=== PATIENT | male | born 1955 | race Caucasian/White ===

== ENCOUNTER 2017-12-21 10:41 | Day surgery (SDC) | payer BC ==
[2017-12-19 08:32] VITALS: BMI 41.1
[2017-12-21 11:23] VITALS: TEMP 97.7
[2017-12-21] MEDS ORDERED: LIDOCAINE 1% 20 ML VIAL (10MG/ML) FOR IV START INTRADERMA ONE (11:50)
[2017-12-21] MEDS: LACTATED RINGERS 1,000 ML IV SCH ×2 (11:50→12:15)
[2017-12-21] MEDS ORDERED: PROPOFOL 10 MG/ML 20 ML VIAL IV ONE (12:17)
--- NOTE | 2017-12-21 12:40 | P.PCN ---
Date of Procedure: 12/21/17 Procedure(s) Performed: BRIEF HISTORY: Patient is a 62-year-old pleasant white male, scheduled for an elective colonoscopy as a part of evaluation of prior history of colon polyps. PROCEDURE PERFORMED: Colonoscopy with biopsy and snare polypectomy PREOPERATIVE DIAGNOSIS: History of Colon polyps. IV sedation per Anesthesia. PROCEDURE: After informed consent was obtained, the patient, was brought into the endoscopy unit. IV sedation was administered by Anesthesia under continuous monitoring. Digital rectal examination was normal. Initially the Olympus CF- 160 flexible video colonoscope was then inserted in the rectum, gradually advanced into the cecum without any difficulty. Careful examination was performed as the scope was gradually being withdrawn. Ileocecal valve and the appendiceal orifice were visualized and appeared normal. Prep was excellent. Mucosa of the cecum, appeared normal. In the ascending colon there were 3 polyps MEASURING between 3-4 mm in size removed by cold biopsy. In the descending colon there was a 7-8 mm polyp that was removed by snare polypectomy. In the sigmoid colon polyp was another 2-3 mm polyp 2 that was removed by biopsy. The rest of the ascending colon, transverse colon, descending colon, sigmoid colon, and rectum appeared normal. Moderate left- sided diverticulosis seen. Retroflexion was performed in the rectum and no lesions were seen. The patient tolerated the procedure well. IMPRESSION: 3 mm sessile 3 polyps in the ascending colon status post removal by cold biopsy 7-8 mm descending colon polyp status post polypectomy 2- 3 mm 2 sessile sigmoid colon polyps status post removal by biopsy Moderate left-sided diverticulosis. RECOMMENDATIONS: Findings of this examination were discussed with the patient well as his family. He was advised to follow with the biopsy results. He can have a repeat surveillance colonoscopy in 3 years because of multiple colon polyps..
[2017-12-21 13:04] VITALS: BP 138/89; PULSE 60; RESP 18
== END 2017-12-21 13:17 | disposition home or self-care (01) ==
LOC: ORWHC2ENDO 10:41
PROVIDERS: ATTEND Internal Medicine Gastroenterology
DX: D12.2 Benign neoplasm of ascending colon (principal); D12.5 Benign neoplasm of sigmoid colon; K63.5 Polyp of colon; K57.30 Diverticulosis of large intestine without perforation or abscess without bleeding; I10 Essential (primary) hypertension; E66.9 Obesity, unspecified; Z85.46 Personal history of malignant neoplasm of prostate; Z79.82 Long term (current) use of aspirin; Z86.010 Personal history of colon polyps; Z79.899 Other long term (current) drug therapy; Z68.41 Body mass index [BMI] 40.0-44.9, adult
CPT/HCPCS: 88305; 45385; 45380; J2704

== ENCOUNTER 2020-04-06 10:00 | Inpatient (IN) | payer BC ==
[2020-04-06] MEDS ORDERED: PIPERACILLIN-TAZOBACTAM 3.375 GM in SODIUM CHLORIDE 0.9% 100 ML IVPB STA (10:22)
[2020-04-06] MEDS ORDERED: VANCOMYCIN IV PER PHARMACY 1 EACH MISC MISCELLANE PRN (10:22)
[2020-04-06] MEDS ORDERED: IBUPROFEN 800 MG TAB PO STA (10:22)
[2020-04-06] MEDS ORDERED: VANCOMYCIN 2,250 MG in SODIUM CHLORIDE 0.9% 500 ML 500 ML IVPB ONE (10:45)
--- NOTE | 2020-04-06 11:14 | ED ---
Extremity Problem HPI - General Source: patient, RN notes reviewed Mode of arrival: wheelchair Limitations: physical limitation <Pranav Gamble - Last Filed: 04/06/20 11:44> <Winnie Rutledge - Last Filed: 04/07/20 09:39> - General Chief complaint: Extremity Problem,Nontraumatic Stated complaint: Cellulitis Time Seen by Provider: 04/06/20 10:10 - History of Present Illness Initial comments: This is a 64-year-old male presents emergency Department chief complaint of left leg cellulitis. Patient states she started having symptoms on Sunday states he developed a fever states he did not eat well. Patient had recurrent issues with cellulitis of his left leg he has seen infectious disease in the past for this. Patient states that he's been taking oral antibiotics since started and did have a visit with his PCP in which a placed him on additional medication yesterday. Patient states he woke up today with increased symptoms. Patient states that he has no history DVT denies any chest pain or shortness breath. Last dose of Tylenol was 4 hours prior arrival and states last dose of Motrin was last night. Patient denies any abdominal pain no headache no dizziness. (Pranav Gamble) - Related Data Home Medications Medication Instructions Recorded Confirmed L.acidoph,Paracasei, B.lactis 1 cap PO DAILY 12/19/17 04/06/20 [Probiotic] Ascorbic Acid [Vitamin C] 500 mg PO DAILY 04/06/20 04/06/20 Cholecalciferol [Vitamin D3 (25 1,000 unit PO DAILY 04/06/20 04/06/20 Mcg = 1000 Iu)] Methylsulfonylmethane [MSM] 900 mg PO DAILY 04/06/20 04/06/20 Sulfamethoxazole/Trimethoprim 1 tab PO BID 04/06/20 04/06/20 [Sulfamethoxazole-Tmp Ds Tablet] lisinopriL 20 mg PO DAILY 04/06/20 04/06/20 Allergies Allergy/AdvReac Type Severity Reaction Status Date / Time No Known Allergies Allergy Verified 04/06/20 10:42 Review of Systems ROS Other: All systems not noted in ROS Statement are negative. <Pranav Gamble - Last Filed: 04/06/20 11:44> ROS Other: All systems not noted in ROS Statement are negative. <Winnie Rutledge - Last Filed: 04/07/20 09:39> ROS Statement: Those systems with pertinent positive or pertinent negative responses have been documented in the HPI. Past Medical History Past Medical History: Cancer, Hyperlipidemia, Hypertension Additional Past Medical History / Comment(s): HX PROSTATE CANCER, cellulitis History of Any Multi-Drug Resistant Organisms: None Reported Past Surgical History: Prostate Surgery Additional Past Surgical History / Comment(s): PROSTATE REMOVED. COLONOSCOPY Past Anesthesia/Blood Transfusion Reactions: No Reported Reaction Past Psychological History: No Psychological Hx Reported Smoking Status: Never smoker Past Alcohol Use History: Daily Past Drug Use History: None Reported - Past Family History Mother Family Medical History: No Reported History <Pranav Gamble - Last Filed: 04/06/20 11:44> General Exam Limitations: physical limitation General appearance: alert, in no apparent distress Head exam: Present: atraumatic, normocephalic, normal inspection Eye exam: Present: normal appearance, PERRL, EOMI. Absent: scleral icterus, conjunctival injection, periorbital swelling Neck exam: Present: normal inspection, full ROM. Absent: tenderness, meningismus, lymphadenopathy Respiratory exam: Present: normal lung sounds bilaterally. Absent: respiratory distress, wheezes, rales, rhonchi, stridor Cardiovascular Exam: Present: normal rhythm, tachycardia, normal heart sounds. Absent: systolic murmur, diastolic murmur, rubs, gallop, clicks Extremities exam: Present: other (Significant erythema, swelling of the left leg, pulses are palpable plus, there is increased warmth the left leg there is tender with palpation over the area of erythema) Neurological exam: Present: alert, oriented X3 <Pranav Gamble - Last Filed: 04/06/20 11:44> Course Vital Signs 04/06/20 04/06/20 04/06/20 10:04 11:51 16:06 Temperature 102.9 F H 99.2 F Pulse Rate 118 H 105 H 103 H Respiratory 18 16 12 Rate Blood Pressure 162/88 159/92 151/93 O2 Sat by Pulse 97 96 98 Oximetry 04/06/20 19:03 Temperature 98.4 F Pulse Rate 104 H Respiratory 16 Rate Blood Pressure 158/99 O2 Sat by Pulse 94 L Oximetry Medical Decision Making - Lab Data Result diagrams: 04/06/20 10:57 04/06/20 10:57 <Pranav Gamble Last Filed: 04/06/20 11:44> - Lab Data Result diagrams: 04/06/20 10:57 04/06/20 10:57 <Winnie Rutledge - Last Filed: 04/07/20 09:39> - Medical Decision Making Patient has significant cellulitis of the left lower extremity, mild leukocytosis and febrile. Patient has been oral antibiotics and has failed outpatient treatment. Patient be admitted for IV antibiotics, infectious disease consult. (Pranav Gamble) I was available for consultation in the emergency department. The history and physical exam were done by the midlevel provider. I was consulted for this patients care. I reviewed the case with the midlevel provider and based on their presentation of the patient, I agree with the assessment, medical decision making and plan of care as documented. Chart was dictated using [employer] dictation software. Attempts were made to correct any dictation errors however some typographical errors may persist. Patient was seen during state of emergency due to Covid-19. (Winnie Rutledge) - Lab Data Lab Results 04/06/20 04/06/20 04/06/20 Range/Units 10:57 10:57 10:57 WBC 12.7 H (3.8-10.6) k/uL RBC 4.26 L (4.30-5.90) m/uL Hgb 14.6 (13.0-17.5) gm/dL Hct 43.6 (39.0-53.0) % MCV 102.5 H (80.0-100.0) fL MCH 34.4 (25.0-35.0) pg MCHC 33.6 (31.0-37.0) g/dL RDW 12.3 (11.5-15.5) % Plt Count 230 (150-450) k/uL MPV 7.8 Neutrophils % 85 % Lymphocytes % 5 % Monocytes % 6 % Eosinophils % 0 % Basophils % 1 % Neutrophils # 10.8 H (1.3-7.7) k/uL Lymphocytes # 0.6 L (1.0-4.8) k/uL Monocytes # 0.8 (0-1.0) k/uL Eosinophils # 0.1 (0-0.7) k/uL Basophils # 0.2 (0-0.2) k/uL PT 9.3 (9.0-12.0) sec INR 0.9 (<1.2) APTT 23.4 (22.0-30.0) sec Sodium 138 (137-145) mmol/L Potassium 3.9 (3.5-5.1) mmol/L Chloride 101 (98-107) mmol/L Carbon Dioxide 30 (22-30) mmol/L Anion Gap 7 mmol/L BUN 15 (9-20) mg/dL Creatinine 0.90 (0.66-1.25) mg/dL Est GFR (CKD-EPI)AfAm >90 (>60 ml/min/1.73 sqM) Est GFR (CKD-EPI)NonAf >90 (>60 ml/min/1.73 sqM) Glucose 118 H (74-99) mg/dL Plasma Lactic Acid Vlad (0.7-2.0) mmol/L Calcium 9.1 (8.4-10.2) mg/dL Total Bilirubin 0.6 (0.2-1.3) mg/dL AST 33 (17-59) U/L ALT 24 (4-49) U/L Alkaline Phosphatase 67 (38-126) U/L Total Protein 7.1 (6.3-8.2) g/dL Albumin 3.8 (3.5-5.0) g/dL 04/06/20 Range/Units 10:57 WBC (3.8-10.6) k/uL RBC (4.30-5.90) m/uL Hgb (13.0-17.5) gm/dL Hct (39.0-53.0) % MCV (80.0-100.0) fL MCH (25.0-35.0) pg MCHC (31.0-37.0) g/dL RDW (11.5-15.5) % Plt Count (150-450) k/uL MPV Neutrophils % % Lymphocytes % % Monocytes % % Eosinophils % % Basophils % % Neutrophils # (1.3-7.7) k/uL Lymphocytes # (1.0-4.8) k/uL Monocytes # (0-1.0) k/uL Eosinophils # (0-0.7) k/uL Basophils # (0-0.2) k/uL PT (9.0-12.0) sec INR (<1.2) APTT (22.0-30.0) sec Sodium (137-145) mmol/L Potassium (3.5-5.1) mmol/L Chloride (98-107) mmol/L Carbon Dioxide (22-30) mmol/L Anion Gap mmol/L BUN (9-20) mg/dL Creatinine (0.66-1.25) mg/dL Est GFR (CKD-EPI)AfAm (>60 ml/min/1.73 sqM) Est GFR (CKD-EPI)NonAf (>60 ml/min/1.73 sqM) Glucose (74-99) mg/dL Plasma Lactic Acid Vlad 1.1 (0.7-2.0) mmol/L Calcium (8.4-10.2) mg/dL Total Bilirubin (0.2-1.3) mg/dL AST (17-59) U/L ALT (4-49) U/L Alkaline Phosphatase (38-126) U/L Total Protein (6.3-8.2) g/dL Albumin (3.5-5.0) g/dL Disposition <Pranav Gamble - Last Filed: 04/06/20 11:44> <Winnie Rutledge - Last Filed: 04/07/20 09:39> Clinical Impression: Left leg cellulitis, Failure of outpatient treatment Disposition: ADMITTED IP TO THIS [facility] Condition: Fair
[2020-04-06 11:20] LABS: Basophils # (A) 0.2 k/uL (0-0.2); Basophils % (A) 1 %; Eosinophils # (A) 0.1 k/uL (0-0.7); Eosinophils % (A) 0 %; HCT 43.6 % (39.0-53.0); HGB 14.6 gm/dL (13.0-17.5); Lymphocytes # (A) 0.6 k/uL (1.0-4.8); Lymphocytes % (A) 5 %; MCH 34.4 pg (25.0-35.0); MCHC 33.6 g/dL (31.0-37.0); MCV 102.5 fL (80.0-100.0); Mean Platelet Volume 7.8; Monocytes # (A) 0.8 k/uL (0-1.0); Monocytes % (A) 6 %; Neutrophils # (A) 10.8 k/uL (1.3-7.7); Neutrophils % (A) 85 %; Platelet Count 230 k/uL (150-450); RBC 4.26 m/uL (4.30-5.90); RDW 12.3 % (11.5-15.5); WBC 12.7 k/uL (3.8-10.6)
[2020-04-06] MEDS ORDERED: ACETAMINOPHEN TAB 500 MG TAB PO STA (11:26)
[2020-04-06 11:31] LABS: ALT 24 U/L (4-49); AST 33 U/L (17-59); African American GFR (CKD) >90 (>60 ml/min/1.73 sqM); Albumin 3.8 g/dL (3.5-5.0); Alkaline Phosphatase 67 U/L (38-126); Anion Gap 7 mmol/L; Blood Urea Nitrogen 15 mg/dL (9-20); Calcium 9.1 mg/dL (8.4-10.2); Carbon Dioxide 30 mmol/L (22-30); Chloride 101 mmol/L (98-107); Glucose 118 mg/dL (74-99); INR 0.9 (<1.2); Non-African American GFR(CKD) >90 (>60 ml/min/1.73 sqM); Partial Thromboplastin Time 23.4 sec (22.0-30.0); Potassium 3.9 mmol/L (3.5-5.1); Prothrombin Time 9.3 sec (9.0-12.0); Sodium 138 mmol/L (137-145); Total Bilirubin 0.6 mg/dL (0.2-1.3); Total Protein 7.1 g/dL (6.3-8.2)
[2020-04-06] MEDS ORDERED: NALOXONE 0.4 MG/ML 1 ML VIAL IV PRN (11:45)
[2020-04-06] MEDS ORDERED: ONDANSETRON 4 MG/2 ML VIAL IVP PRN (11:45)
[2020-04-06] MEDS ORDERED: ACETAMINOPHEN TAB 325 MG TAB PO PRN (11:45)
[2020-04-06] MEDS: SODIUM CHLORIDE 0.9% 1,000 ML IV SCH ×2 (12:46→21:47)
[2020-04-06] MEDS: ceFAZolin 3 GM in SODIUM CHLORIDE 0.9% 100 ML IVPB SCH ×2 (18:58→23:32)
[2020-04-06] MEDS: IBUPROFEN 600 MG TAB PO PRN (19:01)
--- NOTE | 2020-04-07 00:54 | CONS ---
CONSULTATION DATE OF SERVICE: 04/06/2020 REASON FOR CONSULTATION: Left lower extremity cellulitis. HISTORY OF PRESENT ILLNESS: The patient is a 64-year-old male with a past medical history significant for lower extremity swelling and previous episode of left lower extremity cellulitis. The patient presenting to the ER at [facility] this morning for evaluation of left lower extremity swelling and redness that started on Sunday, that is about 4 days prior to presentation to the hospital. The patient denies having any history of trauma. He noticed diffuse swelling and redness of the left lower extremity. The patient did mention he has seen his primary care physician and the patient was started on some oral antibiotic. He is not sure about the name. The patient woke up this morning and noticed to have a fever along with rigors and more swelling and redness to the left leg. The patient denies significant pain to the left leg, though it is more of a diffuse swelling and redness. No open wound or any drainage. On arrival to the ER, the patient did have a fever of 102.9 degrees Fahrenheit. The patient was tachycardic and did have white count 12.7. The patient was started on vancomycin. He was admitted to the hospital. Infectious Disease was consulted for further management of antibiotic therapy. REVIEW OF SYSTEMS: Positive points have been mentioned in HPI. Rest of systems are negative. PAST MEDICAL HISTORY: Hypertension, hyperlipidemia, prostate cancer, left lower extremity cellulitis. PAST SURGICAL HISTORY: Prostatectomy and colonoscopy. SOCIAL HISTORY: No history of smoking. Rarely drinks. No drug use. FAMILY HISTORY: No pertinent findings noticed. ALLERGIES: No known drug allergies. MEDICATIONS: Medications include the patient is currently on Tylenol, Harmony, vancomycin, Motrin, Zestril, Narcan, Zofran and IV fluid. PHYSICAL EXAMINATION: Blood pressure 143/78 with a pulse of 92, temperature 98.4. He is 95% on room air. General description is a middle-aged male lying in bed in no distress. No tachypnea or accessory muscle of respiration use. HEENT: Examination shows no pallor or scleral icterus. Oral mucous membranes dry. No pharyngeal erythema or thrush. NECK: Trachea central, no thyromegaly. LUNGS: Unlabored breathing, clear to auscultation anteriorly. No wheeze or crackle. HEART: S1, S2. Regular rate and rhythm. No added sounds. ABDOMEN: Soft, no tenderness. No guarding or rigidity. EXAMINATION OF LEFT LOWER EXTREMITY: Diffuse swelling, redness, erythema and warm to touch. No open wound or any drainage. NEUROLOGICAL: The patient is awake, alert, oriented x3. Mood and affect normal. LABS: Hemoglobin is 14.6, white count 12.7, creatinine 0.90. DIAGNOSTIC IMPRESSION: Patient admitted to hospital with sepsis in this patient who did have a fever, tachycardia, elevated white count source is acute left lower extremity cellulitis in this patient who did have diffuse swelling, redness and previous episode of cellulitis likely streptococcal disease. PLAN: 1. Discontinue the vancomycin. 2. Will start cefazolin 3 grams q.8 hours. 3. Gordy wrap to the left leg from just above the toe to below the knee. 4. We will follow on clinical condition and culture to further adjust medication if needed. Thank you for this consultation. Will follow this patient along with you. MMODL / IJN: [id number] /
[2020-04-07] MEDS ORDERED: VANCOMYCIN 2,250 MG in SODIUM CHLORIDE 0.9% 500 ML 500 ML IVPB SCH (01:00)
[2020-04-07] MEDS: IBUPROFEN 600 MG TAB PO PRN ×3 (04:07→17:36)
[2020-04-07] MEDS: lisinopriL 20 MG TAB PO SCH (08:43)
[2020-04-07] MEDS: ceFAZolin 3 GM in SODIUM CHLORIDE 0.9% 100 ML IVPB SCH ×3 (08:43→23:25)
[2020-04-07 09:34] LABS: African American GFR (CKD) 110.2 (60.0-200.0); Non-African American GFR(CKD) 95.1 (60.0-200.0)
[2020-04-07] MEDS: ENOXAPARIN 40 MG/0.4 ML SYRINGE SQ SCH (11:14)
[2020-04-07] MEDS: LACTULOSE 20 GM/30 ML CUP PO SCH (16:06)
[2020-04-07] MEDS: CLINDAMYCIN 900 MG in DEXTROSE 5% IN WATER 50 ML IVPB SCH ×2 (17:36)
[2020-04-07] MEDS: MELATONIN 1 MG TAB PO SCH (20:57)
--- NOTE | 2020-04-07 22:43 | P.HPIM ---
History of Present Illness H&P Date: 04/07/20 Chief Complaint: Infection of left leg History of presenting complaint: This is a pleasant 64-year-old patient of Dr. Rafaela García. She started on Sunday with redness of the leg which are progressively getting worse. Started having fevers. Patient is given antibiotics by his PCP but he continued to get worse. Extending up to the thigh. Patient got his stay fever and chills. Having failed outpatient treatment being admitted for the same. Denies any urinary or respiratory symptoms. ID was consulted. Left leg is nontender dressing. With Gordy wrap Review of systems: GEN.: Fever and chills EYES: None HEENT: None NECK: None RESPIRATORY: None CARDIOVASCULAR: None GASTROINTESTINAL: None GENITOURINARY: BPH symptoms MUSCULOSKELETAL: None LYMPHATICS: As above HEMATOLOGICAL: None PSYCHIATRY: None NEUROLOGICAL: None Past medical history: Hyperlipidemia, hypertension, prostate cancer treated with surgery Social history: Patient smoked about half a pack a day for up to 35 years. Stopped in 2013. Has 2 drinks a walker every night. Works as a manufacturing maintenance technician. . Family history: Reviewed, noncontributory to presentation Physical examination: VITAL SIGNS: 102.9, 118, 18, 162/88, 97% room air-upon presentation GENERAL: BMI 45.2, sitting at the edge of the bed, awake. EYES: Pupils equal. Conjunctiva normal. HEENT: External appearance of nose and ears normal, oral cavity grossly normal. NECK: JVD not raised; masses not palpable. HEART: Distant heart sounds no edema. LUNGS: Respiratory rate normal; distant breath sounds. ABDOMEN: Soft, nontender, liver spleen not palpable, no masses palpable. PSYCH: Alert and oriented x3; mood and affect normal EXTREMITIES: Possible lymphedema of the lower extremity. Left lower extremity below the knee is covered dressing and Gordy wrap. Redness is noted is up to the groin area. Both the feet are dry. With some superficial cracks the skin. NEUROLOGICAL: Cranial nerves grossly intact; no facial asymmetry, power and sensation grossly intact. LYMPHATICS: No lymph nodes palpable in the axilla and neck INVESTIGATIONS, reviewed in the clinical context: White count 12.7 hemoglobin 14.6 platelets 2:30 potassium 3.9 creatinine 0.90 Assessment: -Acute cellulitis and lymphangitis possibly of the left lower extremity, cracks and dry feet causing source of entry of bacteria. Patient's failed outpatient treatment. -Sepsis from cellulitis is a left lower extremity -Possible bilateral lower extremity lymphedema -Morbid obesity BMI 45.2 -Essential hypertension -Hyperlipidemia Plan: Patient started on IV Ancef and clindamycin. By ID. Also got Gordy wraps lower extremity. Home medications to be resumed. Lovenox for DVT prophylaxis. Repeat labs in the morning. Past Medical History Past Medical History: Cancer, Hyperlipidemia, Hypertension Additional Past Medical History / Comment(s): HX PROSTATE CANCER, cellulitis History of Any Multi-Drug Resistant Organisms: None Reported Past Surgical History: Appendectomy, Prostate Surgery Additional Past Surgical History / Comment(s): PROSTATE REMOVED. COLONOSCOPY Past Anesthesia/Blood Transfusion Reactions: No Reported Reaction Past Psychological History: No Psychological Hx Reported Smoking Status: Never smoker Past Alcohol Use History: Daily Additional Past Alcohol Use History / Comment(s): QUIT SMOKING 2013. STATES DRINKS MORE THAN 14 DRINKS A WEEK Past Drug Use History: None Reported - Past Family History Mother Family Medical History: No Reported History Medications and Allergies Home Medications Medication Instructions Recorded Confirmed Type L.acidoph,Paracasei, B.lactis 1 cap PO DAILY 12/19/17 04/06/20 History [Probiotic] Ascorbic Acid [Vitamin C] 500 mg PO DAILY 04/06/20 04/06/20 History Cholecalciferol [Vitamin D3 (25 1,000 unit PO DAILY 04/06/20 04/06/20 History Mcg = 1000 Iu)] Methylsulfonylmethane [MSM] 900 mg PO DAILY 04/06/20 04/06/20 History Sulfamethoxazole/Trimethoprim 1 tab PO BID 04/06/20 04/06/20 History [Sulfamethoxazole-Tmp Ds Tablet] lisinopriL 20 mg PO DAILY 04/06/20 04/06/20 History Allergies Allergy/AdvReac Type Severity Reaction Status Date / Time No Known Allergies Allergy Verified 04/06/20 10:42 Physical Exam Vitals: Vital Signs Temp Pulse Pulse Resp BP BP Pulse Ox 04/07/20 04:10 99.1 F 95 16 152/86 96 04/07/20 00:05 16 04/06/20 21:07 98.4 F 92 16 143/78 95 04/06/20 21:00 95 16 04/06/20 19:03 98.4 F 104 H 16 158/99 94 L 04/06/20 16:06 103 H 12 151/93 98 04/06/20 11:51 99.2 F 105 H 16 159/92 96 Intake and Output 04/06/20 04/07/20 04/07/20 22:59 06:59 14:59 Intake Total 130 760 240 Balance 130 760 240 Intake: Intake, IV Titration 130 360 Amount Sodium Chloride 0.9% 1, 130 260 000 ml @ 130 mls/hr IV . [id number] VANESSA Rx#:[id number] ceFAZolin 3 gm In Sodium 100 Chloride 0.9% 100 ml @ 200 mls/hr IVPB Q8HR VANESSA Rx#:[id number] Oral 400 240 Other: Voiding Method Toilet Toilet # Voids 2 Weight 159.665 kg Results CBC & Chem 7: 04/06/20 10:57 04/07/20 05:49 Labs: Abnormal Lab Results - Last 24 Hours (Table) 04/06/20 04/06/20 Range/Units 10:57 10:57 WBC 12.7 H (3.8-10.6) k/uL RBC 4.26 L (4.30-5.90) m/uL MCV 102.5 H (80.0-100.0) fL Neutrophils # 10.8 H (1.3-7.7) k/uL Lymphocytes # 0.6 L (1.0-4.8) k/uL Glucose 118 H (74-99) mg/dL Thrombosis Risk Factor Assmnt - Choose All That Apply Any of the Below Risk Factors Present?: Yes Each Factor Represents 1 point: Obesity (BMI >25), Swollen legs (current) Other Risk Factors: Yes Each Risk Factor Represents 2 Points: Age 61-74 years Other congenital or acquired thrombophilia - If yes, enter type in comment: No Thrombosis Risk Factor Assessment Total Risk Factor Score: 4 Thrombosis Risk Factor Assessment Level: Moderate Risk
[2020-04-08] MEDS: CLINDAMYCIN 900 MG in DEXTROSE 5% IN WATER 50 ML IVPB SCH ×8 (00:03→23:39)
[2020-04-08] MEDS: IBUPROFEN 600 MG TAB PO PRN ×3 (00:06→16:24)
--- NOTE | 2020-04-08 00:15 | PN ---
PROGRESS NOTE DATE OF SERVICE: 04/07/2020 REASON FOR FOLLOWUP: Left lower extremity cellulitis. INTERVAL HISTORY: The patient is currently afebrile. The patient denies having any chest pain. No shortness of breath or cough. No nausea, no vomiting. No abdominal pain. Still has significant swelling and some redness to the left leg tracking up in the left medial thigh area. PHYSICAL EXAMINATION: Blood pressure 147/77 with a pulse of 90, temperature 98.4. He is 95% on room air. General description is a middle-aged male lying in bed in no distress. RESPIRATORY SYSTEM: Unlabored breathing, clear to auscultation anteriorly. HEART: S1, S2. Regular rate and rhythm. ABDOMEN: Soft, no tenderness. Left leg did have swelling and redness with some extension to the left medial thigh area. No open wound or any drainage. LABS: Blood culture negative. Creatinine 0.8. DIAGNOSTIC IMPRESSION AND PLAN: Patient with extensive left lower extremity cellulitis with diffuse swelling and redness, likely streptococcal disease. Still has significant inflammatory changes. Will add clindamycin, continue cefazolin and will evaluate the patient tomorrow. MMODL / IJN: [id number] /
[2020-04-08] MEDS: ceFAZolin 3 GM in SODIUM CHLORIDE 0.9% 100 ML IVPB SCH ×3 (09:18→23:39)
[2020-04-08] MEDS: LACTULOSE 20 GM/30 ML CUP PO SCH (09:19)
[2020-04-08] MEDS: ENOXAPARIN 40 MG/0.4 ML SYRINGE SQ SCH (09:19)
[2020-04-08] MEDS: lisinopriL 20 MG TAB PO SCH (09:19)
[2020-04-08 10:05] LABS: Basophils # (A) 0.1 k/uL (0-0.2); Basophils % (A) 1 %; Eosinophils # (A) 0.2 k/uL (0-0.7); Eosinophils % (A) 2 %; Lymphocytes # (A) 1.1 k/uL (1.0-4.8); Lymphocytes % (A) 11 %; MCH 34.2 pg (25.0-35.0); MCHC 32.5 g/dL (31.0-37.0); MCV 105.2 fL (80.0-100.0); Macrocytosis Slight; Mean Platelet Volume 7.5; Monocytes # (A) 0.5 k/uL (0-1.0); Monocytes % (A) 5 %; Neutrophils # (A) 7.4 k/uL (1.3-7.7); Neutrophils % (A) 79 %; Platelet Count 277 k/uL (150-450); RBC 3.81 m/uL (4.30-5.90); RDW 12.5 % (11.5-15.5); WBC 9.4 k/uL (3.8-10.6)
--- NOTE | 2020-04-08 14:06 | US ---
EXAMINATION TYPE: US venous doppler duplex LE LT DATE OF EXAM: 04/08/2020 12:32 PM COMPARISON: NONE CLINICAL HISTORY: poss DVT. Cellulitis SIDE PERFORMED: Left TECHNIQUE: The lower extremity deep venous system is examined utilizing real time linear array sonog dominic with graded compression, doppler sonography and color-flow sonography. VESSELS IMAGED: Common Femoral Vein Deep Femoral Vein Greater Saphenous Vein * Femoral Vein Popliteal Vein Small Saphenous Vein * Proximal Calf Veins (* superficial vessels) Left Leg: Negative for DVT There is normal flow, compressibility, vascular waveforms. IMPRESSION: No evident deep venous thrombosis at or above the left knee
[2020-04-08 15:10] LABS: African American GFR (CKD) 110.2 (60.0-200.0); Calcium 8.9 mg/dL (8.7-10.3); Non-African American GFR(CKD) 95.1 (60.0-200.0); Potassium 3.8 mmol/L (3.5-5.5)
[2020-04-08] MEDS: MELATONIN 1 MG TAB PO SCH (19:44)
--- NOTE | 2020-04-08 23:41 | P.PN ---
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 She started on Sunday with redness of the leg which are progressively getting worse. Started having fevers. Patient is given antibiotics by his PCP but he continued to get worse. Extending up to the thigh. Patient got his stay fever and chills. Having failed outpatient treatment being admitted for the same. Denies any urinary or respiratory symptoms. ID was consulted. Left leg is nontender dressing. With Gordy wrap Admitted with left lower extremity cellulitis and possible lymphangitis. Gordy wrap dressing. Started on IV Ancef and clindamycin. Today-crit this is a bit decreased. Feeling a bit better. Appetite better. Swelling of the left lower extremity. Review of systems: Was done for constitutional, cardiovascular, GI, pulmonary. relevant finding as above Active Medications Acetaminophen (Acetaminophen Tab 325 Mg Tab) 650 mg PO Q6HR PRN PRN Reason: Mild Pain or Fever > 100.5 Last Admin: 04/06/20 18:38 Dose: 650 mg Documented by: Hydrocodone Bitart/Acetaminophen (Hydrocodone/Apap 5-325mg 1 Each Tab) 1 each PO Q4HR PRN PRN Reason: Moderate Pain Enoxaparin Sodium (Enoxaparin 40 Mg/0.4 Ml Syringe) 40 mg SQ DAILY [facility] Last Admin: 04/08/20 09:19 Dose: 40 mg Documented by: Cefazolin Sodium 3 gm/ Sodium (Chloride) 100 mls @ 200 mls/hr IVPB Q8HR [facility] Last Admin: 04/08/20 16:12 Dose: 200 mls/hr Documented by: Clindamycin Phosphate 900 mg/ (Dextrose/Water) 56 mls @ 50 mls/hr IVPB Q8HR [facility] Last Admin: 04/08/20 16:12 Dose: 50 mls/hr Documented by: Ibuprofen (Ibuprofen 600 Mg Tab) 600 mg PO Q6HR PRN PRN Reason: Mild Pain or Fever > 100.5 Last Admin: 04/08/20 16:24 Dose: 600 mg Documented by: Lactulose (Lactulose 20 Gm/30 Ml Cup) 20 gm PO DAILY [facility] Last Admin: 04/08/20 09:19 Dose: 20 gm Documented by: Lisinopril (Lisinopril 20 Mg Tab) 20 mg PO DAILY [facility] Last Admin: 04/08/20 09:19 Dose: 20 mg Documented by: Melatonin (Melatonin 1 Mg Tab) 3 mg PO HS [facility] Last Admin: 04/08/20 19:44 Dose: 3 mg Documented by: Naloxone HCl (Naloxone 0.4 Mg/Ml 1 Ml Vial) 0.2 mg IV Q2M PRN PRN Reason: Opioid Reversal Ondansetron HCl (Ondansetron 4 Mg/2 Ml Vial) 4 mg IVP Q8HR PRN PRN Reason: Nausea And Vomiting Physical examination: VITAL SIGNS: Afebrile, 80, 16, 161/90, 94% room air GENERAL: BMI 45.2, sitting at the edge of the bed, awake. EYES: Pupils equal. Conjunctiva normal. NECK: JVD not raised; masses not palpable. HEART: Distant heart sounds no edema. LUNGS: Respiratory rate normal; distant breath sounds. ABDOMEN: Soft, nontender, liver spleen not palpable, no masses palpable. PSYCH: Alert and oriented x3; mood and affect normal EXTREMITIES: Possible lymphedema of the lower extremity. Left lower extremity showing redness, less than yesterday. Swollen. INVESTIGATIONS, reviewed in the clinical context: White count 9.4 hemoglobin 13 potassium 3.8 creatinine 0.8 Doppler ultrasound of the left leg-negative for DVT Previous testing White count 12.7 hemoglobin 14.6 platelets 2:30 potassium 3.9 creatinine 0.90 Assessment: -Acute cellulitis and lymphangitis possibly of the left lower extremity, cracks and dry feet causing source of entry of bacteria. Patient's failed outpatient treatment.-Start started respond -Sepsis from cellulitis is a left lower extremity-responding -Possible bilateral lower extremity lymphedema -Morbid obesity BMI 45.2 -Essential hypertension -Hyperlipidemia Plan: Continue IV Ancef and clindamycin. Other medications to continue. Ultrasound left lower extremity-negative for DVT
--- NOTE | 2020-04-08 23:47 | PN ---
PROGRESS NOTE DATE OF SERVICE: 04/08/2020 REASON FOR FOLLOWUP: Acute left lower extremity cellulitis. INTERVAL HISTORY: The patient is currently afebrile. The patient is breathing comfortably. The left leg swelling and redness has improved. Denies having any chest pain. No shortness of breath or cough. No abdominal pain or diarrhea. PHYSICAL EXAMINATION: Blood pressure 161/90 with a pulse of 80, temperature is 97.8. General description is a middle-aged male up in the bed in no distress. RESPIRATORY SYSTEM: Unlabored breathing, clear to auscultation anteriorly. HEART: S1, S2. Regular rate and rhythm. ABDOMEN: Soft, no tenderness. Left leg swelling and redness has decreased. No open or any drainage. DIAGNOSTIC IMPRESSION AND PLAN: Patient with acute left lower extremity cellulitis with diffuse swelling and redness, likely streptococcal disease and patient overall clinical improvement with cefazolin and clindamycin for another 24 to 48 hours before transitioning to oral antibiotics. Continue with supportive care. MMODL / IJN: [id number] /
[2020-04-09] MEDS: IBUPROFEN 600 MG TAB PO PRN (01:09)
[2020-04-09] MEDS: LACTULOSE 20 GM/30 ML CUP PO SCH (08:13)
[2020-04-09] MEDS: ENOXAPARIN 40 MG/0.4 ML SYRINGE SQ SCH (08:13)
[2020-04-09] MEDS: CLINDAMYCIN 900 MG in DEXTROSE 5% IN WATER 50 ML IVPB SCH ×4 (08:13→15:42)
[2020-04-09] MEDS: lisinopriL 20 MG TAB PO SCH (08:13)
[2020-04-09] MEDS: ceFAZolin 3 GM in SODIUM CHLORIDE 0.9% 100 ML IVPB SCH ×3 (08:14→23:27)
[2020-04-09 15:18] LABS: African American GFR (CKD) 110.2 (60.0-200.0); Non-African American GFR(CKD) 95.1 (60.0-200.0)
[2020-04-09] MEDS: HYDROcodone/APAP 5-325MG 1 EACH TAB PO PRN ×2 (15:49→23:28)
[2020-04-09] MEDS: MELATONIN 1 MG TAB PO SCH (20:22)
--- NOTE | 2020-04-09 23:13 | P.PN ---
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 She started on Sunday with redness of the leg which are progressively getting worse. Started having fevers. Patient is given antibiotics by his PCP but he continued to get worse. Extending up to the thigh. Patient got his stay fever and chills. Having failed outpatient treatment being admitted for the same. Denies any urinary or respiratory symptoms. ID was consulted. Left leg is nontender dressing. With Gordy wrap Admitted with left lower extremity cellulitis and possible lymphangitis. Gordy wrap dressing. Started on IV Ancef and clindamycin. Today-slight improvement and redness. Blister just above the left ankle. No fever Review of systems: Was done for constitutional, cardiovascular, GI, pulmonary. relevant finding as above Active Medications Acetaminophen (Acetaminophen Tab 325 Mg Tab) 650 mg PO Q6HR PRN PRN Reason: Mild Pain or Fever > 100.5 Last Admin: 04/06/20 18:38 Dose: 650 mg Documented by: Hydrocodone Bitart/Acetaminophen (Hydrocodone/Apap 5-325mg 1 Each Tab) 1 each PO Q4HR PRN PRN Reason: Moderate Pain Last Admin: 04/09/20 15:49 Dose: 1 each Documented by: Enoxaparin Sodium (Enoxaparin 40 Mg/0.4 Ml Syringe) 40 mg SQ DAILY [facility] Last Admin: 04/09/20 08:13 Dose: 40 mg Documented by: Cefazolin Sodium 3 gm/ Sodium (Chloride) 100 mls @ 200 mls/hr IVPB Q8HR [facility] Last Admin: 04/09/20 15:42 Dose: 200 mls/hr Documented by: Clindamycin Phosphate 900 mg/ (Dextrose/Water) 56 mls @ 50 mls/hr IVPB Q8HR [facility] Last Admin: 04/09/20 15:42 Dose: 50 mls/hr Documented by: Ibuprofen (Ibuprofen 600 Mg Tab) 600 mg PO Q6HR PRN PRN Reason: Mild Pain or Fever > 100.5 Last Admin: 04/09/20 01:09 Dose: 600 mg Documented by: Lactulose (Lactulose 20 Gm/30 Ml Cup) 20 gm PO DAILY [facility] Last Admin: 04/09/20 08:13 Dose: 20 gm Documented by: Lisinopril (Lisinopril 20 Mg Tab) 20 mg PO DAILY [facility] Last Admin: 04/09/20 08:13 Dose: 20 mg Documented by: Melatonin (Melatonin 1 Mg Tab) 3 mg PO HS [facility] Last Admin: 04/09/20 20:22 Dose: 3 mg Documented by: Naloxone HCl (Naloxone 0.4 Mg/Ml 1 Ml Vial) 0.2 mg IV Q2M PRN PRN Reason: Opioid Reversal Ondansetron HCl (Ondansetron 4 Mg/2 Ml Vial) 4 mg IVP Q8HR PRN PRN Reason: Nausea And Vomiting Silver Sulfadiazine (Silver Sulfadiazine 1% Cream 25 Gm Tube) 1 applic TOPICAL DAILY [facility] Last Admin: 04/09/20 17:59 Dose: 1 applic Documented by: Physical examination: VITAL SIGNS: 98.6, 103, 24, 152/92, 96% room air GENERAL: BMI 45.2, sitting sitting at edge of the bed, EYES: Pupils equal. Conjunctiva normal. NECK: JVD not raised; masses not palpable. HEART: Distant heart sounds no edema. LUNGS: Respiratory rate normal; distant breath sounds. ABDOMEN: Soft, nontender, liver spleen not palpable, no masses palpable. PSYCH: Alert and oriented x3; mood and affect normal EXTREMITIES: Possible lymphedema of the lower extremity. Left lower extremity showing redness,. Blister above the left ankle. Left leg swollen. INVESTIGATIONS, reviewed in the clinical context: White count 9.4 hemoglobin 13 potassium 3.8 creatinine 0.8 Doppler ultrasound of the left leg-negative for DVT Previous testing White count 12.7 hemoglobin 14.6 platelets 2:30 potassium 3.9 creatinine 0.90 COVID 19 P/Cr-not detected Assessment: -Acute cellulitis and lymphangitis possibly of the left lower extremity, cracks and dry feet causing source of entry of bacteria. Patient's failed outpatient treatment.- -Sepsis from cellulitis is a left lower extremity-responding -Possible bilateral lower extremity lymphedema. Left greater than right -Morbid obesity BMI 45.2 -Essential hypertension -Hyperlipidemia Plan: Continue IV Ancef and clindamycin. Gordy wrap to continue. Discussed with the patient. Keep left leg elevated.
[2020-04-10] MEDS: CLINDAMYCIN 900 MG in DEXTROSE 5% IN WATER 50 ML IVPB SCH ×6 (00:12→16:10)
[2020-04-10 06:30] LABS: Basophils # (A) 0.1 k/uL (0-0.2); Basophils % (A) 1 %; Eosinophils # (A) 0.2 k/uL (0-0.7); Eosinophils % (A) 2 %; HCT 39.9 % (39.0-53.0); HGB 13.2 gm/dL (13.0-17.5); Lymphocytes # (A) 1.6 k/uL (1.0-4.8); Lymphocytes % (A) 18 %; MCH 34.2 pg (25.0-35.0); MCV 103.7 fL (80.0-100.0); Macrocytosis Slight; Mean Platelet Volume 7.2; Monocytes # (A) 0.5 k/uL (0-1.0); Monocytes % (A) 6 %; Neutrophils # (A) 6.7 k/uL (1.3-7.7); Neutrophils % (A) 72 %; Platelet Count 448 k/uL (150-450); RBC 3.84 m/uL (4.30-5.90); RDW 12.4 % (11.5-15.5); WBC 9.3 k/uL (3.8-10.6)
--- NOTE | 2020-04-10 06:36 | PN ---
PROGRESS NOTE DATE OF SERVICE: 04/09/2020 REASON FOR FOLLOW UP: Extensive left lower extremity cellulitis. INTERVAL HISTORY: Patient is currently afebrile. The patient is breathing comfortably. The patient did have a blister formation to the left medial thigh area with rupture and complaining of more pain to that area. No chest pain. No cough. No abdominal pain, no diarrhea. PHYSICAL EXAMINATION: Blood pressure 150/96, pulse of 95, temperature 98.8. He is 95% on room air. General description is a middle-aged male up in the chair in no distress. Respiratory system: Unlabored breathing, clear to auscultation anteriorly. Heart S1, S2. Regular rate and rhythm. Abdomen is soft, no tenderness. Left leg with significant swelling, redness, no drainage. DIAGNOSTIC IMPRESSION AND PLAN: Patient with acute left lower extremity cellulitis. currently covered with cefazolin and clindamycin. Continue local care with Gordy wrap as well as Silvadene cream and monitor clinical course closely. MMODL / IJN: [id number] /
[2020-04-10] MEDS: ceFAZolin 3 GM in SODIUM CHLORIDE 0.9% 100 ML IVPB SCH ×2 (09:35→16:10)
[2020-04-10] MEDS: ENOXAPARIN 40 MG/0.4 ML SYRINGE SQ SCH (09:36)
[2020-04-10] MEDS: LACTULOSE 20 GM/30 ML CUP PO SCH (09:36)
[2020-04-10] MEDS: lisinopriL 20 MG TAB PO SCH (09:36)
[2020-04-10] MEDS: LORATADINE-PSEUDOEPH 5-120 MG 1 EACH TAB.ER.12H PO SCH ×2 (12:51→22:34)
[2020-04-10] MEDS: HYDROcodone/APAP 5-325MG 1 EACH TAB PO PRN (16:04)
--- NOTE | 2020-04-10 21:55 | P.PN ---
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 She started on Sunday with redness of the leg which are progressively getting worse. Started having fevers. Patient is given antibiotics by his PCP but he continued to get worse. Extending up to the thigh. Patient got his stay fever and chills. Having failed outpatient treatment being admitted for the same. Denies any urinary or respiratory symptoms. ID was consulted. Left leg is nontender dressing. With Gordy wrap Admitted with left lower extremity cellulitis and possible lymphangitis. Gordy wrap dressing. Started on IV Ancef and clindamycin. Today-slow improvement. Redness present. Decreased blisters. No fever no chills. Oral intake code. Review of systems: Was done for constitutional, cardiovascular, GI, pulmonary. relevant finding as above Active Medications Acetaminophen (Acetaminophen Tab 325 Mg Tab) 650 mg PO Q6HR PRN PRN Reason: Mild Pain or Fever > 100.5 Last Admin: 04/06/20 18:38 Dose: 650 mg Documented by: Hydrocodone Bitart/Acetaminophen (Hydrocodone/Apap 5-325mg 1 Each Tab) 1 each PO Q4HR PRN PRN Reason: Moderate Pain Last Admin: 04/10/20 16:04 Dose: 1 each Documented by: Enoxaparin Sodium (Enoxaparin 40 Mg/0.4 Ml Syringe) 40 mg SQ DAILY [facility] Last Admin: 04/10/20 09:36 Dose: 40 mg Documented by: Cefazolin Sodium 3 gm/ Sodium (Chloride) 100 mls @ 200 mls/hr IVPB Q8HR [facility] Last Admin: 04/10/20 16:10 Dose: 200 mls/hr Documented by: Clindamycin Phosphate 900 mg/ (Dextrose/Water) 56 mls @ 50 mls/hr IVPB Q8HR [facility] Last Admin: 04/10/20 16:10 Dose: 50 mls/hr Documented by: Ibuprofen (Ibuprofen 600 Mg Tab) 600 mg PO Q6HR PRN PRN Reason: Mild Pain or Fever > 100.5 Last Admin: 04/09/20 01:09 Dose: 600 mg Documented by: Lactulose (Lactulose 20 Gm/30 Ml Cup) 20 gm PO DAILY [facility] Last Admin: 04/10/20 09:36 Dose: 20 gm Documented by: Lisinopril (Lisinopril 20 Mg Tab) 20 mg PO DAILY [facility] Last Admin: 04/10/20 09:36 Dose: 20 mg Documented by: Loratadine/Pseudoephedrine Sulfate (Loratadine-Pseudoeph 5-120 Mg 1 Each Tab.Er.12h) 1 each PO Q12HR [facility] Last Admin: 04/10/20 12:51 Dose: 1 each Documented by: Melatonin (Melatonin 1 Mg Tab) 3 mg PO HS [facility] Last Admin: 04/09/20 20:22 Dose: 3 mg Documented by: Naloxone HCl (Naloxone 0.4 Mg/Ml 1 Ml Vial) 0.2 mg IV Q2M PRN PRN Reason: Opioid Reversal Ondansetron HCl (Ondansetron 4 Mg/2 Ml Vial) 4 mg IVP Q8HR PRN PRN Reason: Nausea And Vomiting Silver Sulfadiazine (Silver Sulfadiazine 1% Cream 25 Gm Tube) 1 applic TOPICAL DAILY [facility] Last Admin: 04/10/20 09:44 Dose: 1 applic Documented by: Physical examination: VITAL SIGNS: 97.9, 77, 16, 150s expected 9, 97% room air GENERAL: BMI 45.2, sitting up, comfortable EYES: Pupils equal. Conjunctiva normal. NECK: JVD not raised; masses not palpable. HEART: Distant heart sounds no edema. LUNGS: Respiratory rate normal; distant breath sounds. ABDOMEN: Soft, nontender, liver spleen not palpable, no masses palpable. PSYCH: Alert and oriented x3; mood and affect normal EXTREMITIES: lymphedema of the lower extremity. Left lower extremity showing redness,. Blister above the left ankle. Left leg swollen. INVESTIGATIONS, reviewed in the clinical context: White count 9.3 hemoglobin 13.2 Doppler ultrasound of the left leg-negative for DVT Previous testing White count 12.7 hemoglobin 14.6 platelets 2:30 potassium 3.9 creatinine 0.90 COVID 19 P/Cr-not detected Assessment: -Acute cellulitis and lymphangitis possibly of the left lower extremity, cracks and dry feet causing source of entry of bacteria. Patient's failed outpatient treatment.- -Sepsis from cellulitis is a left lower extremity-responding -Possible bilateral lower extremity lymphedema. Left greater than right -Morbid obesity BMI 45.2 -Essential hypertension -Hyperlipidemia Plan: Continue IV Ancef and clindamycin. Gordy wrap to continue. Follow with ID. Check pro-calcitonin.
--- NOTE | 2020-04-10 22:27 | PN ---
PROGRESS NOTE DATE OF SERVICE: 04/10/2020 REASON FOR FOLLOWUP VISIT: Extensive left lower extremity cellulitis. INTERVAL HISTORY: Patient is currently afebrile. Patient is breathing comfortably. Denies having any chest pain or shortness of breath or cough. Overall, pain to the left leg has slightly decreased. PHYSICAL EXAMINATION: Blood pressure 145/87, pulse of 69, temperature 98.2. He is 96% on room air. General description is a middle-aged male up in the chair in no distress. Respiratory system: Unlabored breathing, clear to auscultation anteriorly. Heart S1, S2. Regular rate and rhythm. Abdomen soft, no tenderness. Left leg swelling has mildly decreased. Did have some superficial ulceration from ( ). LABS: Hemoglobin 13.1, white count 9.3, creatinine 0.8. DIAGNOSTIC IMPRESSION AND PLAN: Patient with acute left lower extremity cellulitis and diffuse swelling and redness, extensive cellulitis, likely streptococcal. Responding to the clindamycin and Zosyn to continue for the 24 hours before transitioning to oral. Local care to the left leg wound with Aquacel Silver dressing to the open blister area and Gordy wrap and will re- evaluate the patient tomorrow. MMODL / IJN: [id number] /
[2020-04-10] MEDS: MELATONIN 1 MG TAB PO SCH (22:34)
[2020-04-11] MEDS: ceFAZolin 3 GM in SODIUM CHLORIDE 0.9% 100 ML IVPB SCH ×3 (00:11→16:36)
[2020-04-11] MEDS: CLINDAMYCIN 900 MG in DEXTROSE 5% IN WATER 50 ML IVPB SCH ×8 (00:17→23:35)
[2020-04-11] MEDS: HYDROcodone/APAP 5-325MG 1 EACH TAB PO PRN ×4 (00:19→20:06)
[2020-04-11] MEDS: LACTULOSE 20 GM/30 ML CUP PO SCH (07:53)
[2020-04-11] MEDS: LORATADINE-PSEUDOEPH 5-120 MG 1 EACH TAB.ER.12H PO SCH ×2 (07:53→20:09)
[2020-04-11] MEDS: lisinopriL 20 MG TAB PO SCH (07:53)
[2020-04-11] MEDS: ENOXAPARIN 40 MG/0.4 ML SYRINGE SQ SCH (07:53)
[2020-04-11] MEDS: MELATONIN 1 MG TAB PO SCH (20:09)
--- NOTE | 2020-04-11 21:32 | P.PN ---
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 She started on Sunday with redness of the leg which are progressively getting worse. Started having fevers. Patient is given antibiotics by his PCP but he continued to get worse. Extending up to the thigh. Patient got his stay fever and chills. Having failed outpatient treatment being admitted for the same. Denies any urinary or respiratory symptoms. ID was consulted. Left leg is nontender dressing. With Gordy wrap Admitted with left lower extremity cellulitis and possible lymphangitis. Gordy wrap dressing. Started on IV Ancef and clindamycin. Today-slow improvement. Redness present. Decreased blisters. No fever no chills. Eating better. Review of systems: Was done for constitutional, cardiovascular, GI, pulmonary. r elevant finding as above Active Medications Acetaminophen (Acetaminophen Tab 325 Mg Tab) 650 mg PO Q6HR PRN PRN Reason: Mild Pain or Fever > 100.5 Last Admin: 04/06/20 18:38 Dose: 650 mg Documented by: Hydrocodone Bitart/Acetaminophen (Hydrocodone/Apap 5-325mg 1 Each Tab) 1 each PO Q4HR PRN PRN Reason: Moderate Pain Last Admin: 04/11/20 20:06 Dose: 1 each Documented by: Enoxaparin Sodium (Enoxaparin 40 Mg/0.4 Ml Syringe) 40 mg SQ DAILY [facility] Last Admin: 04/11/20 07:53 Dose: 40 mg Documented by: Cefazolin Sodium 3 gm/ Sodium (Chloride) 100 mls @ 200 mls/hr IVPB Q8HR [facility] Last Admin: 04/11/20 16:36 Dose: 200 mls/hr Documented by: Clindamycin Phosphate 900 mg/ (Dextrose/Water) 56 mls @ 50 mls/hr IVPB Q8HR [facility] Last Admin: 04/11/20 16:36 Dose: 50 mls/hr Documented by: Ibuprofen (Ibuprofen 600 Mg Tab) 600 mg PO Q6HR PRN PRN Reason: Mild Pain or Fever > 100.5 Last Admin: 04/09/20 01:09 Dose: 600 mg Documented by: Lactulose (Lactulose 20 Gm/30 Ml Cup) 20 gm PO DAILY [facility] Last Admin: 04/11/20 07:53 Dose: 20 gm Documented by: Lisinopril (Lisinopril 20 Mg Tab) 20 mg PO DAILY [facility] Last Admin: 04/11/20 07:53 Dose: 20 mg Documented by: Loratadine/Pseudoephedrine Sulfate (Loratadine-Pseudoeph 5-120 Mg 1 Each Tab.Er.12h) 1 each PO Q12HR [facility] Last Admin: 04/11/20 20:09 Dose: 1 each Documented by: Melatonin (Melatonin 1 Mg Tab) 3 mg PO HS [facility] Last Admin: 04/11/20 20:09 Dose: 3 mg Documented by: Naloxone HCl (Naloxone 0.4 Mg/Ml 1 Ml Vial) 0.2 mg IV Q2M PRN PRN Reason: Opioid Reversal Ondansetron HCl (Ondansetron 4 Mg/2 Ml Vial) 4 mg IVP Q8HR PRN PRN Reason: Nausea And Vomiting Silver Sulfadiazine (Silver Sulfadiazine 1% Cream 25 Gm Tube) 1 applic TOPICAL DAILY [facility] Last Admin: 04/11/20 08:02 Dose: 1 applic Documented by: Physical examination: VITAL SIGNS: 98, 74, 17, 151 bun 97, 97% room air GENERAL: BMI 45.2, sitting up, comfortable EYES: Pupils equal. Conjunctiva normal. NECK: JVD not raised; masses not palpable. HEART: Distant heart sounds no edema. LUNGS: Respiratory rate normal; distant breath sounds. ABDOMEN: Soft, nontender, liver spleen not palpable, no masses palpable. PSYCH: Alert and oriented x3; mood and affect normal EXTREMITIES: lymphedema of the lower extremity. Left lower extremity showing redness,. . Left leg swollen. INVESTIGATIONS, reviewed in the clinical context: White count 9.3 hemoglobin 13.2. Pro-calcitonin 0.12 Previous testing White count 12.7 hemoglobin 14.6 platelets 2:30 potassium 3.9 creatinine 0.90 COVID 19 P/Cr-not detected Doppler ultrasound of the left leg-negative for DVT Assessment: -Acute cellulitis and lymphangitis possibly of the left lower extremity, cracks and dry feet causing source of entry of bacteria. Patient's failed outpatient treatment.- -Sepsis from cellulitis is a left lower extremity-responding -Possible bilateral lower extremity lymphedema. Left greater than right -Morbid obesity BMI 45.2 -Essential hypertension -Hyperlipidemia Plan: Continue IV Ancef and clindamycin. Spoke with nurse Due to the Gordy wrap for leak of the leg. And to both the legs. Discussed with Dr. Moscoso from ID. Hopefully discharge tomorrow.
[2020-04-12] MEDS: ceFAZolin 3 GM in SODIUM CHLORIDE 0.9% 100 ML IVPB SCH ×2 (00:44→08:36)
--- NOTE | 2020-04-12 03:35 | PN ---
PROGRESS NOTE DATE OF SERVICE: 04/11/2020 REASON FOR FOLLOWUP: Extensive left lower extremity cellulitis. INTERVAL HISTORY: The patient is currently afebrile. He has been breathing comfortably. The patient denies having any chest pain or shortness of breath or cough. No abdominal pain. Overall pain and discomfort to the left leg has slightly decreased. PHYSICAL EXAMINATION: His vital signs are stable with T-max of 98. General description is a middle-aged male up in the chair in no distress. RESPIRATORY SYSTEM: Unlabored breathing, clear to auscultation anteriorly. HEART: S1, S2. Regular rate and rhythm. ABDOMEN: Soft, no tenderness. Left leg swelling and redness slightly decreased. LABS: Culture remains to be negative. DIAGNOSTIC IMPRESSION AND PLAN: Patient with acute left lower extremity cellulitis in this patient did have diffuse swelling and redness, likely streptococcal disease. The patient has slow clinical response to the cefazolin and clindamycin. Plan to finish therapy with oral Keflex. Prescription has been sent. Local care to continue with dry Aquacel dressing and Gordy wrap and [facility]. Continue with supportive care. MMODL / IJN: [id number] /
[2020-04-12] MEDS: HYDROcodone/APAP 5-325MG 1 EACH TAB PO PRN (05:01)
[2020-04-12 07:48] VITALS: BP 160/98; PULSE 77; RESP 16; TEMP 97.7
[2020-04-12] MEDS: LACTULOSE 20 GM/30 ML CUP PO SCH (08:36)
[2020-04-12] MEDS: LORATADINE-PSEUDOEPH 5-120 MG 1 EACH TAB.ER.12H PO SCH (08:36)
[2020-04-12] MEDS: lisinopriL 20 MG TAB PO SCH (08:36)
[2020-04-12] MEDS: ENOXAPARIN 40 MG/0.4 ML SYRINGE SQ SCH (08:36)
[2020-04-12] MEDS: CLINDAMYCIN 900 MG in DEXTROSE 5% IN WATER 50 ML IVPB SCH ×2 (09:10)
[2020-04-12 10:19] VITALS: BMI 45.1
--- NOTE | 2020-04-12 14:30 | PN ---
PROGRESS NOTE DATE OF SERVICE: 04/12/2020 REASON FOR FOLLOWUP: Left lower extremity cellulitis. INTERVAL HISTORY: Patient was seen on rounds this afternoon. The patient has been afebrile. Overall pain is concern of negative. No chest pain or cough. No abdominal pain no diarrhea. PHYSICAL EXAMINATION: Blood pressure 160/90 with a pulse of 77, temperature 97.7. He is 96% on room air. General description is an middle-aged male, up in the in no distress. RESPIRATORY SYSTEM: Unlabored breathing, clear to auscultation. HEART: S1, S2. Regular rate and rhythm. ABDOMEN: Soft, no tenderness. Left leg swelling has slightly decreased. LABS: No new labs been obtained today. Blood culture has been negative. DIAGNOSTIC IMPRESSION AND PLAN: Patient acute left lower extremity cellulitis, extensive, clinically responded to cefazolin. Will switch to oral Keflex, prescription was sent to the pharmacy along with Gordy wrap to the leg and close outpatient followup. MMODL / IJN: [id number] /
--- NOTE | 2020-04-13 23:14 | P.DS ---
Providers Date of admission: 04/06/20 11:45 Expected date of discharge: 04/12/20 Attending physician: Zach Cordon Consults: 04/06/20 11:45 Consult Physician Urgent Consulting Provider: Natasha Jauregui Consult Reason/Comments: Cellulitis Do you want consulting provider notified?: Yes Primary care physician: Rafaela García [facility] Course: Chief Complaint: Infection of left leg History of presenting complaint: This is a pleasant 64-year-old patient of Dr. Rafaela García. She started on Sunday with redness of the leg which are progressively getting worse. Started having fevers. Patient is given antibiotics by his PCP but he continued to get worse. Extending up to the thigh. Patient got his stay fever and chills. Having failed outpatient treatment being admitted for the same. Denies any urinary or respiratory symptoms. ID was consulted. Left leg is nontender dressing. With Gordy wrap Admitted with left lower extremity cellulitis and possible lymphangitis. Gordy wrap dressing. Started on IV Ancef and clindamycin.responded well. Today-significant improvement. No fever no chills. Cleared by ID to go home. Patient advised to keep using Gordy wrap for long-term with the legs.he will follow at the wound Center with Dr. Moscoso. Consultation: from ID. Physical examination: VITAL SIGNS: 97.7, 77, 16, 1 6198, 96% room air GENERAL: BMI 45.2, sitting up, comfortable EYES: Pupils equal. Conjunctiva normal. NECK: JVD not raised; masses not palpable. HEART: Distant heart sounds no edema. LUNGS: Respiratory rate normal; distant breath sounds. ABDOMEN: Soft, nontender, liver spleen not palpable, no masses palpable. PSYCH: Alert and oriented x3; mood and affect normal EXTREMITIES: lymphedema of the lower extremity. Left lower extremity showing redness,. . Left leg swollen. INVESTIGATIONS, reviewed in the clinical context: White count 9.3 hemoglobin 13.2. Pro-calcitonin 0.12 Previous testing White count 12.7 hemoglobin 14.6 platelets 2:30 potassium 3.9 creatinine 0.90 COVID 19 P/Cr-not detected Doppler ultrasound of the left leg-negative for DVT Assessment: -Acute cellulitis and lymphangitis possibly of the left lower extremity, cracks and dry feet causing source of entry of bacteria. Patient's failed outpatient treatment.- -Sepsis from cellulitis is a left lower extremity-responding -Possible bilateral lower extremity lymphedema. Left greater than right -Morbid obesity BMI 45.2 -Essential hypertension -Hyperlipidemia disposition: Home Patient Condition at Discharge: Stable Plan - Discharge Summary New Discharge Prescriptions: New Cephalexin [Keflex] 500 mg PO Q6HR 10 Days #40 cap Melatonin 3 mg PO HS tab SILVER sulfADIAZINE CREAM [Silvadene Cream] 1 applic TOPICAL DAILY applic Acetaminophen Tab [Tylenol] 650 mg PO Q6HR PRN tab PRN Reason: Mild Pain Or Fever > 100.5 Continue L.acidoph,Paracasei, B.lactis [Probiotic] 1 cap PO DAILY Ascorbic Acid [Vitamin C] 500 mg PO DAILY Cholecalciferol [Vitamin D3 (25 Mcg = 1000 Iu)] 1,000 unit PO DAILY lisinopriL 20 mg PO DAILY Discontinued Methylsulfonylmethane [MSM] 900 mg PO DAILY Sulfamethoxazole/Trimethoprim [Sulfamethoxazole-Tmp Ds Tablet] 1 tab PO BID Discharge Medication List L.acidoph,Paracasei, B.lactis [Probiotic] 1 cap PO DAILY 12/19/17 [History] Ascorbic Acid [Vitamin C] 500 mg PO DAILY 04/06/20 [History] Cholecalciferol [Vitamin D3 (25 Mcg = 1000 Iu)] 1,000 unit PO DAILY 04/06/20 [History] lisinopriL 20 mg PO DAILY 04/06/20 [History] Cephalexin [Keflex] 500 mg PO Q6HR 10 Days #40 cap 04/11/20 [Rx] Acetaminophen Tab [Tylenol] 650 mg PO Q6HR PRN tab 04/12/20 [Rx] Melatonin 3 mg PO HS tab 04/12/20 [Rx] SILVER sulfADIAZINE CREAM [Silvadene Cream] 1 applic TOPICAL DAILY applic 04/12/20 [Rx] Follow up Appointment(s)/Referral(s): wound center-dr jauregui, [Other] - 1 Week (infectious disease physician will call the patient to make his appointment This appointment will be at [facility] ([facility] Rafaela García DO [Primary Care Provider] - 04/16/20 10:30 am Patient Instructions/Handouts: Cephalexin (By mouth), Cellulitis (DC) Activity/Diet/Wound Care/Special Instructions: Lab work --CBC/BMP in 5 days Wound care with gordy wrap to continue per Dr. Phillip Littlejohn to left inner calf blister area daily, wet to dry dressing, wrap with kerlix roll and gordy wrap daily. Silvadene cream to reddened areas on left leg/foot/thigh daily. Discharge/Stand Alone Forms: Work/School Release / Restrict Discharge Disposition: HOME SELF-CARE
== END 2020-04-12 13:20 | disposition home or self-care (01) | DRG 872 ==
LOC: EC 10:00 → 6NMEDSUR 11:45 → 5NMEDONC 04-11 18:06
PROVIDERS: ADMIT Hospitalist; ATTEND Hospitalist
DX: A41.9 Sepsis, unspecified organism (principal); Z68.42 Body mass index [BMI] 45.0-49.9, adult; L03.116 Cellulitis of left lower limb; E78.5 Hyperlipidemia, unspecified; E66.01 Morbid (severe) obesity due to excess calories; I10 Essential (primary) hypertension; Z79.899 Other long term (current) drug therapy; Z85.46 Personal history of malignant neoplasm of prostate; Z87.891 Personal history of nicotine dependence; Z98.890 Other specified postprocedural states
CPT/HCPCS: 36415; 80048; 80053; 82565; 83605; 84145; 85025; 85610; 85730; 87040; 96365; 96366; 96367; 99284

== ENCOUNTER 2023-05-26 13:19 | Emergency (ER) | payer BC, MEDICARE ==
--- NOTE | 2023-05-26 14:28 | ED ---
General Adult HPI - General Source: patient Mode of arrival: ambulatory Limitations: no limitations <Eric Cordova - Last Filed: 05/26/23 16:26> <Yaima Schwartz - Last Filed: 05/26/23 18:28> - General Chief complaint: Extremity Injury, Lower Stated complaint: Poss Blood Clot-L Leg/Calf - History of Present Illness Initial comments: Quick note: 67-year-old male presents to the emergency room for left calf pain. It just started last night. He saw his doctor today and was told to come to the ER to rule out a blood clot. He is not on any blood thinners. He does have a history of cellulitis in that leg but has not had those problems for 3 years. Verbally signed by Eric Cordova PAC 05/26/22 7000 (Eric Cordova) 67-year-old male presenting with chief complaint of left-sided calf pain. It is mainly to the lateral portion of the calf. It started last night. States that the pain is provoked by touching the area and weight bearing. He was seen at his PCPs office today, he was encouraged to come to the ER to rule out a blood clot. He does have a history of recurrent cellulitis to this leg, does not necessarily feel like previous episodes of cellulitis. No injury, fever, chills, nausea, vomiting, swelling, chest pain, difficulty breathing. (Yaima Schwartz) - Related Data Home Medications Medication Instructions Recorded Confirmed L.acidoph,Paracasei, B.lactis 1 cap PO DAILY 12/19/17 04/06/20 [Probiotic] Ascorbic Acid [Vitamin C] 500 mg PO DAILY 04/06/20 04/06/20 Cholecalciferol [Vitamin D3 (25 1,000 unit PO DAILY 04/06/20 04/06/20 Mcg = 1000 Iu)] lisinopriL 20 mg PO DAILY 04/06/20 04/06/20 Previous Rx's Medication Instructions Recorded Cephalexin [Keflex] 500 mg PO Q6HR 10 Days #40 cap 04/11/20 Acetaminophen Tab [Tylenol] 650 mg PO Q6HR PRN tab 04/12/20 Melatonin 3 mg PO HS tab 04/12/20 SILVER sulfADIAZINE CREAM 1 applic TOPICAL DAILY applic 04/12/20 [Silvadene Cream] Clindamycin [Cleocin] 450 mg PO TID 7 Days #63 cap 05/26/23 Allergies Allergy/AdvReac Type Severity Reaction Status Date / Time No Known Allergies Allergy Verified 05/26/23 14:26 Review of Systems ROS Other: All systems not noted in ROS Statement are negative. <Eric Cordova - Last Filed: 05/26/23 16:26> ROS Other: All systems not noted in ROS Statement are negative. <Yaima Schwartz - Last Filed: 05/26/23 18:28> ROS Statement: Those systems with pertinent positive or pertinent negative responses have been documented in the HPI. Past Medical History Past Medical History: Cancer, Hyperlipidemia, Hypertension Additional Past Medical History / Comment(s): HX PROSTATE CANCER, cellulitis History of Any Multi-Drug Resistant Organisms: None Reported Past Surgical History: Appendectomy, Prostate Surgery Additional Past Surgical History / Comment(s): PROSTATE REMOVED. COLONOSCOPY Past Anesthesia/Blood Transfusion Reactions: No Reported Reaction Past Psychological History: No Psychological Hx Reported Smoking Status: Never smoker Past Alcohol Use History: Daily Past Drug Use History: None Reported - Past Family History Mother Family Medical History: No Reported History <Eric Cordova - Last Filed: 05/26/23 16:26> General Exam Limitations: no limitations <Eric Cordova - Last Filed: 05/26/23 16:26> Limitations: no limitations General appearance: alert, in no apparent distress Head exam: Present: atraumatic, normocephalic Eye exam: Present: normal appearance Neck exam: Present: normal inspection Respiratory exam: Absent: respiratory distress Cardiovascular Exam: Present: regular rate Extremities exam: Present: full ROM Left Lower Leg exam: Present: tenderness (Tenderness to the lateral portion of the lower leg), swelling (There is a mild amount of swelling in the legs which patient states is his baseline), erythema (There is some erythema to the lower leg, patient and his states that this is how his leg normally appears) Neurovascular tendon exam: Present: no vascular compromise Neurological exam: Present: alert, oriented X3 Psychiatric exam: Present: normal affect, normal mood <Yaima Schwartz - Last Filed: 05/26/23 18:28> - General Exam Comments Initial Comments: Visual exam: Well-appearing, no acute distress (Eric Cordova) Course Vital Signs 05/26/23 14:23 Temperature 98.4 F Pulse Rate 83 Respiratory 20 Rate Blood Pressure 150/82 O2 Sat by Pulse 99 Oximetry Medical Decision Making <Yaima Schwartz - Last Filed: 05/26/23 18:28> - Medical Decision Making Was pt. sent in by a medical professional or institution (, AIDA, WATER AND SEWER SYSTEMS SUPERINTENDENT, urgent care, hospital, or alf...) When possible be specific @ -Sent by PCPs office Did you speak to anyone other than the patient for history (EMS, parent, family, police, friend...)? What history was obtained from this source @ -[No] Did you review nursing and triage notes (agree or disagree)? Why? @ -[I reviewed and agree with nursing and triage notes] Were old charts reviewed (outside hosp., previous admission, EMS record, old EKG, old radiological studies, urgent care reports/EKG's, alf records)? Report findings @ -[No old charts were reviewed] Differential Diagnosis (chest pain, altered mental status, abdominal pain women, abdominal pain men, vaginal bleeding, weakness, fever, dyspnea, syncope, headache, dizziness, GI bleed, back pain, seizure, CVA, palpatations, mental health, musculoskeletal)? @ -Differential Musculoskeletal Muscular strain, contusion, ligament sprain, fracture, arthritis, septic arthritis, bursitis, cellulitis, muscle spasm, nerve compression, DVT, arterial occlusion, herpes zoster, electrolyte abnormality, tumor.... This is not meant to be in all inclusive list EKG interpreted by me (3pts min.). @ -[As above] X-rays interpreted by me (1pt min.). @ -[None done] CT interpreted by me (1pt min.). @ -[None done] U/S interpreted by me (1pt. min.). @ -Ultrasound negative for DVT. What testing was considered but not performed or refused? (CT, X-rays, U/S, labs)? Why? @ -[None] What meds were considered but not given or refused? Why? @ -[None] Did you discuss the management of the patient with other professionals (professionals i.e. , [employer], WATER AND SEWER SYSTEMS SUPERINTENDENT, lab, RT, psych nurse, group social worker, director environmental, teacher, first aid officer, watch case polisher)? Give summary @ -[No] Was smoking cessation discussed for >3mins.? @ -[No] Was critical care preformed (if so, how long)? @ -[No] Were there social determinants of health that impacted care today? How? (Homelessness, low income, unemployed, alcoholism, drug addiction, transportation, low edu. Level, literacy, decrease access to med. care, alf, rehab)? @ -[No] Was there de-escalation of care discussed even if they declined (Discuss DNR or withdrawal of care, Hospice)? DNR status @ -[No] What co-morbidities impacted this encounter? (DM, HTN, Smoking, COPD, CAD, Cancer, CVA, ARF, Chemo, Hep., AIDS, mental health diagnosis, sleep apnea, morbid obesity)? @ -[None] Was patient admitted / discharged? Hospital course, mention meds given and route, prescriptions, significant lab abnormalities, going to OR and other pertinent info. @ -67-year-old male presenting with chief complaint of pain to the lateral portion of the left lower leg. It started last night. Told by PCP to rule out blood clot. Lower leg has some redness, patient report this is normal for him, tenderness on palpation of the lateral portion of the leg. Ultrasound is negative for DVT. Patient has history of recurrent cellulitis, he'll be treated with clindamycin. Follow-up with PCP. Report back to ER with any new or worsening symptoms. Discussed return parameters and answered all questions. Patient conveyed verbal understanding and agreed to the plan. I discussed this case in detail with my attending Dr. Gunn Undiagnosed new problem with uncertain prognosis? @ -[No] Drug Therapy requiring intensive monitoring for toxicity (Heparin, Nitro, Insulin, Cardizem)? @ -[No] Were any procedures done? @ -[No] Diagnosis/symptom? @ -Cellulitis Acute, or Chronic, or Acute on Chronic? @ -acute Uncomplicated (without systemic symptoms) or Complicated (systemic symptoms)? @ -Uncomplicated Side effects of treatment? @ -[No] Exacerbation, Progression, or Severe Exacerbation? @ -[No] Poses a threat to life or bodily function? How? (Chest pain, [place], CA, pneumonia, PE, COPD, DKA, ARF, appy, cholecystitis, CVA, Diverticulitis, Homicidal, Suicid al, threat to staff... and all critical care pts) @ -Low likelihood (Schwartz,Maloree) Disposition <Eric Cordova - Last Filed: 05/26/23 16:26> Is patient prescribed a controlled substance at d/c from ED?: No Time of Disposition: 16:29 <Yaima Schwartz - Last Filed: 05/26/23 18:28> Clinical Impression: Left leg cellulitis Disposition: HOME SELF-CARE Condition: Good Instructions (If sedation given, give patient instructions): Cellulitis (ED) Additional Instructions: Follow-up with PCP. Report back to ER with any new or worsening symptoms. Prescriptions: Clindamycin [Cleocin] 450 mg PO TID 7 Days #63 cap Referrals: John Benavides MD [Primary Care Provider] - 1-2 days
--- NOTE | 2023-05-26 15:50 | US ---
EXAMINATION TYPE: US venous doppler duplex LE LT DATE OF EXAM: 05/26/2023 3:30 PM COMPARISON: 04/08/2020 CLINICAL INDICATION: Male, 67 years old with history of DVT r/o; Left leg pain and redness, no known prior DVT SIDE PERFORMED: Left TECHNIQUE: The lower extremity deep venous system is examined utilizing real time linear array sonog dominic with graded compression, doppler sonography and color-flow sonography. VESSELS IMAGED: Common Femoral Vein Deep Femoral Vein Greater Saphenous Vein * Femoral Vein Popliteal Vein Small Saphenous Vein * Proximal Calf Veins Posterior tibial veins (* superficial vessels) Left Leg: Negative for DVT IMPRESSION: No evidence for DVT within the left lower extremity.
[2023-05-26] MEDS ORDERED: IBUPROFEN 400 MG TAB PO STA (16:30)
[2023-05-26 16:52] VITALS: BP 142/87; PULSE 80; RESP 18; TEMP 98.1
== END 2023-05-26 16:50 | disposition home or self-care (01) ==
LOC: EC 13:19
DX: L03.116 Cellulitis of left lower limb (principal); I10 Essential (primary) hypertension
CPT/HCPCS: 99283

== ENCOUNTER 2023-06-27 23:08 | Inpatient (IN) | payer MEDICARE, BC ==
[2023-06-27 23:55] LABS: Basophils # (A) 0.1 k/uL (0-0.2); Basophils % (A) 1 %; Eosinophils # (A) 0.3 k/uL (0-0.7); Eosinophils % (A) 3 %; HCT 39.6 % (39.0-53.0); HGB 13.1 gm/dL (13.0-17.5); Lymphocytes # (A) 3.2 k/uL (1.0-4.8); Lymphocytes % (A) 38 %; MCH 32.8 pg (25.0-35.0); MCHC 33.1 g/dL (31.0-37.0); MCV 99.1 fL (80.0-100.0); Mean Platelet Volume 7.6; Monocytes # (A) 0.6 k/uL (0-1.0); Monocytes % (A) 7 %; Neutrophils # (A) 4.1 k/uL (1.3-7.7); Neutrophils % (A) 48 %; Platelet Count 271 k/uL (150-450); RDW 12.9 % (11.5-15.5); WBC 8.6 k/uL (3.8-10.6)
[2023-06-28 00:05] LABS: ALT 25 U/L (4-49); AST 32 U/L (17-59); African American GFR (CKD) 88 (>60 ml/min/1.73 sqM); Albumin 4.3 g/dL (3.5-5.0); Alkaline Phosphatase 82 U/L (38-126); Anion Gap 8 mmol/L; Blood Urea Nitrogen 35 mg/dL (9-20); Calcium 9.7 mg/dL (8.4-10.2); Carbon Dioxide 26 mmol/L (22-30); Chloride 107 mmol/L (98-107); Glucose 99 mg/dL (74-99); Magnesium 1.9 mg/dL (1.6-2.3); Non-African American GFR(CKD) 77 (>60 ml/min/1.73 sqM); Partial Thromboplastin Time 25.9 sec (22.0-30.0); Potassium 4.3 mmol/L (3.5-5.1); Prothrombin Time 10.7 sec (10.0-12.5); Sodium 141 mmol/L (137-145); Total Bilirubin 0.3 mg/dL (0.2-1.3); Total Protein 7.7 g/dL (6.3-8.2)
--- NOTE | 2023-06-28 03:31 | CT ---
ADDENDUM - Added by Harpreet Alcantar MD on 06/28/2023 4:33 AM (-08:00) ADDENDUM: ADDITIONAL FINDINGS: Delayed phase imaging is now available. The hyperdensity noted on the early arterial phase imaging is not as clearly delineated but is suggested in the proximal sigmoid posteriorly, again suggesting subtle extravasation in this region. The previous impression remains. EXAM: CT Angiography Abdomen and Pelvis Without and With Intravenous Contrast CLINICAL HISTORY: GI bleed TECHNIQUE: Axial computed tomographic angiography images of the abdomen and pelvis without and with intravenous contrast. CTDI is 69.2 mGy and DLP is 4596. 6 mGy-cm. This CT exam was performed using one or more of the following dose reduction techniques: automated exposure control, adjustment of the mA and/or kV according to patient size, and/or use of iterative reconstruction technique. MIP reconstructed images were created and reviewed. COMPARISON: No relevant prior studies available. FINDINGS: VASCULATURE: Aorta: The aorta is normal in caliber without dissection or aneurysm. No significant atherosclerotic changes. Celiac trunk and mesenteric arteries: The LILY is patent proximally. No occlusion or significant stenosis. Renal arteries: No acute findings. No occlusion or significant stenosis. Iliac arteries: The common and external iliac arteries are widely patent without stenosis or occlusion. Lung bases: Unremarkable. No mass. No consolidation. ABDOMEN: Liver: Unremarkable. No mass. Gallbladder and bile ducts: Unremarkable. No calcified stones. No ductal dilation. Pancreas: Unremarkable. No ductal dilation. No mass. Spleen: Unremarkable. No splenomegaly. Adrenals: Unremarkable. No mass. Kidneys and ureters: The kidneys demonstrate normal enhancement. Nonobstructive nephrolithiasis is noted bilaterally with the largest stone burden inferiorly on the left measuring 16 mm in length. Incidental cortical cysts predominantly subcentimeter. Stomach and bowel: There is intraluminal contrast extravasation noted on early arterial phase imaging, not present on precontrast imaging, layering dependently in the proximal sigmoid colon (series 501; images [id number] and series 502; images 74-77). No bowel obstruction. No significant asymmetric bowel mucosal abnormality. Moderate stool burden. Extensive diverticulosis. PELVIS: Appendix: No findings to suggest acute appendicitis. Bladder: Unremarkable. No stones. No mass. Reproductive: Unremarkable as visualized. ABDOMEN and PELVIS: Intraperitoneal space: Unremarkable. No significant fluid collection. No free air. Bones/joints: No acute fracture. No dislocation. Soft tissues: Unremarkable. Lymph nodes: Unremarkable. No enlarged lymph nodes. IMPRESSION: There is intraluminal contrast extravasation noted on early arterial phase imaging, not present on precontrast imaging, layering dependently in the proximal sigmoid colon (series 501; images [id number] and series 502; images 74-77). This is consistent with the source of the patient's reported GI bleed. <MYCVCSECTION> Communications: 06/28/23 03:33 Call Doctor Regarding Active Bleeding in any site, called Dr. Rutledge on 06/28 03:33 (-05:00) 06/28/23 04:37 Verify Receipt Verified receipt with [facility]in in ER for Dr. Rutledge on 06/28 04:37 (-05:00)
[2023-06-28] MEDS ORDERED: NALOXONE 0.4 MG/ML 1 ML VIAL IV PRN (04:10)
--- NOTE | 2023-06-28 04:10 | ED ---
GI Bleed HPI - General Chief complaint: GI Bleed Stated complaint: GI BLEED Time Seen by Provider: 06/27/23 23:35 Source: patient Mode of arrival: ambulatory Limitations: no limitations - History of Present Illness Initial comments: 67-year-old male presents to the emergency department for rectal bleeding. States that he has had multiple bowel movements today of bright red blood. No history of similar in the past. States that he has had colonoscopies with polyps however has never had a GI bleed. He denies alcohol use. Does admit to daily NSAID use. Patient has mild left lower abdominal pain. No fevers. He does not take any blood thinners. No other alleviating, precipitating or modifying factors - Related Data Home Medications Medication Instructions Recorded Confirmed Ascorbic Acid [Vitamin C] 500 mg PO DAILY 04/06/20 06/28/23 Aspirin EC [Ecotrin] 325 mg PO DAILY 06/28/23 06/28/23 Cholecalciferol [Vitamin D3 (25 25 mcg PO DAILY 06/28/23 06/28/23 Mcg = 1000 Iu)] [place]-3/Dha/Epa/Fish Oil [Fish Oil 1 cap PO DAILY 06/28/23 06/28/23 1,000 mg Softgel] lisinopriL [Prinivil] 10 mg PO DAILY 06/28/23 06/28/23 Previous Rx's Medication Instructions Recorded Amoxic-Pot Clav 500-125 mg 1 tab PO Q12HR 7 Days #14 tab 06/30/23 [Augmentin 500-125 mg] Pantoprazole [Protonix] 40 mg PO DAILY #30 tab 06/30/23 Allergies Allergy/AdvReac Type Severity Reaction Status Date / Time No Known Allergies Allergy Verified 06/28/23 07:41 Review of Systems ROS Statement: Those systems with pertinent positive or pertinent negative responses have been documented in the HPI. ROS Other: All systems not noted in ROS Statement are negative. Past Medical History Past Medical History: Cancer, Hyperlipidemia, Hypertension Additional Past Medical History / Comment(s): HX PROSTATE CANCER, cellulitis History of Any Multi-Drug Resistant Organisms: None Reported Past Surgical History: Appendectomy, Prostate Surgery Additional Past Surgical History / Comment(s): PROSTATE REMOVED. COLONOSCOPY Past Anesthesia/Blood Transfusion Reactions: No Reported Reaction Past Psychological History: No Psychological Hx Reported Smoking Status: Never smoker Past Alcohol Use History: None Reported Past Drug Use History: None Reported - Past Family History Mother Family Medical History: No Reported History General Exam Limitations: no limitations General appearance: alert, in no apparent distress Head exam: Present: atraumatic, normocephalic, normal inspection Eye exam: Present: normal appearance, PERRL, EOMI. Absent: scleral icterus, conjunctival injection, periorbital swelling ENT exam: Present: normal exam, mucous membranes moist Neck exam: Present: normal inspection. Absent: tenderness, meningismus, lymphadenopathy Respiratory exam: Present: normal lung sounds bilaterally. Absent: respiratory distress, wheezes, rales, rhonchi, stridor Cardiovascular Exam: Present: regular rate, normal rhythm, normal heart sounds. Absent: systolic murmur, diastolic murmur, rubs, gallop, clicks GI/Abdominal exam: Present: soft, normal bowel sounds. Absent: distended, tenderness, guarding, rebound, rigid Rectal exam: Present: bloody stool. Absent: hemorrhoids, mass, tenderness Extremities exam: Present: normal inspection, full ROM, normal capillary refill. Absent: tenderness, pedal edema, joint swelling, calf tenderness Back exam: Present: normal inspection Neurological exam: Present: alert, oriented X3, CN II-XII intact Psychiatric exam: Present: normal affect, normal mood Skin exam: Present: warm, dry, intact, normal color. Absent: rash Course Vital Signs 06/27/23 06/28/23 06/28/23 23:15 00:22 01:09 Temperature 97.7 F Pulse Rate 84 74 77 Respiratory 16 16 18 Rate Blood Pressure 153/99 134/76 130/78 O2 Sat by Pulse 95 97 97 Oximetry 06/28/23 06/28/23 06/28/23 02:50 03:44 04:54 Temperature Pulse Rate 86 86 90 Respiratory 16 14 11 L Rate Blood Pressure 151/97 140/96 137/80 O2 Sat by Pulse 97 97 Oximetry 06/28/23 06/28/23 06/28/23 06:06 07:51 10:45 Temperature 97.7 F Pulse Rate 82 79 87 Respiratory 18 20 18 Rate Blood Pressure 130/71 132/88 154/86 O2 Sat by Pulse 97 97 98 Oximetry 06/28/23 06/28/23 06/28/23 12:24 13:26 14:40 Temperature 96.9 F L Pulse Rate 93 91 96 Respiratory 20 20 18 Rate Blood Pressure 139/90 129/85 129/76 O2 Sat by Pulse 98 96 97 Oximetry 06/28/23 06/28/23 17:36 18:04 Temperature Pulse Rate 107 H 106 H Respiratory 18 20 Rate Blood Pressure 158/95 134/97 O2 Sat by Pulse 98 Oximetry Medical Decision Making - Medical Decision Making Was pt. sent in by a medical professional or institution (, PA, HOTEL VALET ATTENDANT, urgent care, hospital, or [facility]...) When possible be specific @ -No Did you speak to anyone other than the patient for history (EMS, parent, family, police, friend...)? What history was obtained from this source @ -Spoke with the patient's Did you review nursing and triage notes (agree or disagree)? Why? @ -I reviewed and agree with nursing and triage notes Were old charts reviewed (outside hosp., previous admission, EMS record, old EKG, old radiological studies, urgent care reports/EKG's, [facility] records)? Report findings @ -No old charts were reviewed Differential Diagnosis (chest pain, altered mental status, abdominal pain women, abdominal pain men, vaginal bleeding, weakness, fever, dyspnea, syncope, headache, dizziness, GI bleed, back pain, seizure, CVA, palpatations, mental health, musculoskeletal)? @ -Differential GI Bleed: Esophageal varices, aortoenteric fistula, Kelsea-Beckwith, gastritis, peptic ulcer disease, diverticulosis, inflammatory bowel disease, hemorrhoids, fissure, colitis, malignancy, Meckels diverticulum, this is not meant to be an all- inclusive list. EKG interpreted by me (3pts min.). @ -Not done X-rays interpreted by me (1pt min.). @ -None done CT interpreted by me (1pt min.). @ -Yes and demonstrates extensive diverticulosis U/S interpreted by me (1pt. min.). @ -None done What testing was considered but not performed or refused? (CT, X-rays, U/S, labs)? Why? @ -None What meds were considered but not given or refused? Why? @ -None Did you discuss the management of the patient with other professionals (professionals i.e. , AIDA, HOTEL VALET ATTENDANT, lab, RT, psych nurse, director social, painting worker, teacher, family preservation officer, welfare case worker)? Give summary @ -Discussed the case with Dr. Brown who agreed to consult on the patient Was smoking cessation discussed for >3mins.? @ -No Was critical care preformed (if so, how long)? @ -No Were there social determinants of health that impacted care today? How? (Homelessness, low income, unemployed, alcoholism, drug addiction, transportation, low edu. Level, literacy, decrease access to med. care, [place] [facility], rehab)? @ -No Was there de-escalation of care discussed even if they declined (Discuss DNR or withdrawal of care, Hospice)? DNR status @ -No What co-morbidities impacted this encounter? (DM, HTN, Smoking, COPD, CAD, Cancer, CVA, ARF, Chemo, Hep., AIDS, mental health diagnosis, sleep apnea, morbid obesity)? @ -None Was patient admitted / discharged? Hospital course, mention meds given and route, prescriptions, significant lab abnormalities, going to OR and other pertinent info. @ -Upon arrival patient was placed into room 2. Thorough history and physical exam was performed. Rectal exam was performed and does demonstrate bright red blood. IV is established laboratory studies are conducted. CT is performed. I did call and speak with Dr. Brown. She was agreeable to consult on the patient for his GI bleed. Patient admitted to [facility]. Spoke with Isauro. Undiagnosed new problem with uncertain prognosis? @ -No Drug Therapy requiring intensive monitoring for toxicity (Heparin, Nitro, Insulin, Cardizem)? @ -No Were any procedures done? @ -No Diagnosis/symptom? @ -Acute hematochezia, acute diverticulosis Acute, or Chronic, or Acute on Chronic? @ -Acute Uncomplicated (without systemic symptoms) or Complicated (systemic symptoms)? @ -Complicated Side effects of treatment? @ -No Exacerbation, Progression, or Severe Exacerbation? @ -No Poses a threat to life or bodily function? How? (Chest pain, [place], [place], pneumonia, PE, COPD, DKA, ARF, appy, cholecystitis, CVA, Diverticulitis, Homicidal, Suicidal, threat to staff... and all critical care pts) @ -Yes patient does have significant lower GI bleed - Lab Data Result diagrams: 06/30/23 07:43 06/29/23 06:33 Lab Results 06/27/23 06/27/23 06/27/23 Range/Units 23:40 23:40 23:40 WBC 8.6 (3.8-10.6) k/uL RBC 4.00 L (4.30-5.90) m/uL Hgb 13.1 (13.0-17.5) gm/dL Hct 39.6 (39.0-53.0) % MCV 99.1 (80.0-100.0) fL MCH 32.8 (25.0-35.0) pg MCHC 33.1 (31.0-37.0) g/dL RDW 12.9 (11.5-15.5) % Plt Count 271 (150-450) k/uL MPV 7.6 Neutrophils % 48 % Lymphocytes % 38 % Monocytes % 7 % Eosinophils % 3 % Basophils % 1 % Neutrophils # 4.1 (1.3-7.7) k/uL Lymphocytes # 3.2 (1.0-4.8) k/uL Monocytes # 0.6 (0-1.0) k/uL Eosinophils # 0.3 (0-0.7) k/uL Basophils # 0.1 (0-0.2) k/uL PT 10.7 (10.0-12.5) sec INR 1.0 (<1.2) APTT 25.9 (22.0-30.0) sec Sodium 141 (137-145) mmol/L Potassium 4.3 (3.5-5.1) mmol/L Chloride 107 (98-107) mmol/L Carbon Dioxide 26 (22-30) mmol/L Anion Gap 8 mmol/L BUN 35 H (9-20) mg/dL Creatinine 1.02 (0.66-1.25) mg/dL Est GFR (CKD-EPI)AfAm 88 (>60 ml/min/1.73 sqM) Est GFR (CKD-EPI)NonAf 77 (>60 ml/min/1.73 sqM) Glucose 99 (74-99) mg/dL Plasma Lactic Acid Vlad (0.7-2.0) mmol/L Calcium 9.7 (8.4-10.2) mg/dL Magnesium 1.9 (1.6-2.3) mg/dL Total Bilirubin 0.3 (0.2-1.3) mg/dL AST 32 (17-59) U/L ALT 25 (4-49) U/L Alkaline Phosphatase 82 (38-126) U/L Troponin I (0.000-0.034) ng/mL Total Protein 7.7 (6.3-8.2) g/dL Albumin 4.3 (3.5-5.0) g/dL 06/27/23 06/27/23 Range/Units 23:40 23:40 WBC (3.8-10.6) k/uL RBC (4.30-5.90) m/uL Hgb (13.0-17.5) gm/dL Hct (39.0-53.0) % MCV (80.0-100.0) fL MCH (25.0-35.0) pg MCHC (31.0-37.0) g/dL RDW (11.5-15.5) % Plt Count (150-450) k/uL MPV Neutrophils % % Lymphocytes % % Monocytes % % Eosinophils % % Basophils % % Neutrophils # (1.3-7.7) k/uL Lymphocytes # (1.0-4.8) k/uL Monocytes # (0-1.0) k/uL Eosinophils # (0-0.7) k/uL Basophils # (0-0.2) k/uL PT (10.0-12.5) sec INR (<1.2) APTT (22.0-30.0) sec Sodium (137-145) mmol/L Potassium (3.5-5.1) mmol/L Chloride (98-107) mmol/L Carbon Dioxide (22-30) mmol/L Anion Gap mmol/L BUN (9-20) mg/dL Creatinine (0.66-1.25) mg/dL Est GFR (CKD-EPI)AfAm (>60 ml/min/1.73 sqM) Est GFR (CKD-EPI)NonAf (>60 ml/min/1.73 sqM) Glucose (74-99) mg/dL Plasma Lactic Acid Vlad 0.7 (0.7-2.0) mmol/L Calcium (8.4-10.2) mg/dL Magnesium (1.6-2.3) mg/dL Total Bilirubin (0.2-1.3) mg/dL AST (17-59) U/L ALT (4-49) U/L Alkaline Phosphatase (38-126) U/L Troponin I <0.012 (0.000-0.034) ng/mL Total Protein (6.3-8.2) g/dL Albumin (3.5-5.0) g/dL Disposition Clinical Impression: Hematochezia, Sigmoid diverticulosis Disposition[facility] Condition: Stable Is patient prescribed a controlled substance at d/c from ED?: No Time of Disposition: 04:10 Decision to Admit Reason: Admit from EC Decision Date: 06/28/23 Decision Time: 04:10
--- NOTE | 2023-06-28 11:16 | P.HPIM ---
History of Present Illness Covering for his PCP Dr. ZHENG This is a pleasant 67 years old male with multiple medical problems Presents because of blood in the stool Patient has states he has 4 episodes of blood in the stool, the first one was mild but the next 3 were heavier, it is painless, as patient denies abdominal pain or tenderness. No chest pain or dyspnea. No diarrhea. No dysuria or urgency. No other neurological symptoms Denies smoking alcohol He takes aspirin 325 mg daily but also he has arthritis especially of the right knee and he is been told he needs knee surgery He uses naproxen frequently but mostly last few days as he states, patient counseled to try to avoid Naprosyn as increased risk of bleeding. Also he uses Tylenol which he can continue. Patient also was upset because he still in the emergency room to waiting for a bed available, he says he will wait a few hours and he doesn't get the bed he will walk about. Patient counseled against leaving AMA, risks including but not limited to the risk of worsening bleeding, hypertension and/or are explained for him and he verbalized understanding and acceptance to stay for now but he still would consider to leave AMA later on. Based upon my evaluation patient has capacity to make decision. Patient is himself awake alert sitting in the chair comfortable with no distress and looks at baseline, he looks as symptomatic other than the blood in his stool. He is oriented to time place person, follow commands and has insight into his illness He is hemodynamically stable Hemoglobin 13.1, rest of CBC is unremarkable, INR 1.0, BMP and liver enzymes and troponin were unremarkable Abdominal computed tomography scan showing proximal sigmoid contrast suspicious for GI bleed Review of Systems Review of systems CONSTITUTIONAL: No fever, no malaise, no fatigue. HEENT: No recent visual problems or hearing problems. Denied any sore throat. CARDIOVASCULAR: No orthopnea, PND, no palpitations, no syncope. PULMONARY: No shortness of breath, no cough, no hemoptysis. GASTROINTESTINAL: No diarrhea, no nausea, no vomiting, no abdominal pain. Normoactive bowel sounds. NEUROLOGICAL: No headaches, no weakness, no numbness. HEMATOLOGICAL: Denies any bleeding or petechiae. GENITOURINARY: Denies any burning micturition, frequency, or urgency. MUSCULOSKELETAL/RHEUMATOLOGICAL: Denies any joint pain, swelling, or any muscle pain. ENDOCRINE: Denies any polyuria or polydipsia. Past Medical History Past Medical History: Cancer, Hyperlipidemia, Hypertension Additional Past Medical History / Comment(s): HX PROSTATE CANCER, cellulitis left leg History of Any Multi-Drug Resistant Organisms: None Reported Past Surgical History: Appendectomy, Prostate Surgery, Tonsillectomy Additional Past Surgical History / Comment(s): PROSTATE REMOVED. COLONOSCOPY Past Anesthesia/Blood Transfusion Reactions: No Reported Reaction Past Psychological History: No Psychological Hx Reported Smoking Status: Former smoker Past Alcohol Use History: None Reported Additional Past Alcohol Use History / Comment(s): QUIT SMOKING 2013 Past Drug Use History: None Reported - Past Family History Mother Family Medical History: No Reported History Medications and Allergies Home Medications Medication Instructions Recorded Confirmed Type Ascorbic Acid [Vitamin C] 500 mg PO DAILY 04/06/20 06/28/23 History Aspirin EC [Ecotrin] 325 mg PO DAILY 06/28/23 06/28/23 History Cholecalciferol [Vitamin D3 (25 25 mcg PO DAILY 06/28/23 06/28/23 History Mcg = 1000 Iu)] [place]-3/Dha/Epa/Fish Oil [Fish Oil 1 cap PO DAILY 06/28/23 06/28/23 History 1,000 mg Softgel] lisinopriL [Prinivil] 10 mg PO DAILY 06/28/23 06/28/23 History Allergies Allergy/AdvReac Type Severity Reaction Status Date / Time No Known Allergies Allergy Verified 06/28/23 07:41 Physical Exam Vitals: Vital Signs Temp Pulse Resp BP Pulse Ox 06/28/23 07:51 97.7 F 79 20 132/88 97 06/28/23 06:06 82 18 130/71 97 06/28/23 04:54 90 11 L 137/80 97 06/28/23 03:44 86 14 140/96 06/28/23 02:50 86 16 151/97 97 06/28/23 01:09 77 18 130/78 97 06/28/23 00:22 74 16 134/76 97 06/27/23 23:15 97.7 F 84 16 153/99 95 Intake and Output 06/27/23 06/28/23 06/28/23 22:59 06:59 14:59 Other: Weight 139.253 kg GENERAL: The patient is alert and oriented x3, not in any acute distress. Well developed, well nourished. HEENT: Pupils are round and equally reacting to light. EOMI. No scleral icterus. No conjunctival pallor. Normocephalic, atraumatic. No pharyngeal erythema. No thyromegaly. CARDIOVASCULAR: S1 and S2 present. No murmurs, rubs, or gallops. PULMONARY: Chest is clear to auscultation, no wheezing , no crackles. ABDOMEN: Soft, nontender, nondistended, normoactive bowel sounds. No palpable organomegaly. MUSCULOSKELETAL: No joint swelling or deformity. EXTREMITIES: No cyanosis, clubbing, or pedal edema. NEUROLOGICAL: Gross neurological examination did not reveal any focal deficits. SKIN: No rashes. no petechiae. Results CBC & Chem 7: 06/27/23 23:40 06/27/23 23:40 Labs: Abnormal Lab Results - Last 24 Hours (Table) 06/27/23 06/27/23 Range/Units 23:40 23:40 RBC 4.00 L (4.30-5.90) m/uL BUN 35 H (9-20) mg/dL Assessment and Plan Assessment: Blood in his stool suspicious for lower GI bleed, with contrast seen in the sigmoid suspicious for diverticulosis with bleeding given the location. Hemoglobin and blood pressure is stable but needs close monitoring History of osteoarthritis especially of the right no which is more severe Obesity with BMI of 39.4 Hypertension Hyperlipidemia History of prostate cancer status post prostate removed Plan: Continue monitoring hemoglobin Surgery team consult Continue with normal saline at 75 mL/h Hold aspirin and blood thinners Continue with Protonix Patient counseled extensively against leaving AMA, however he has capacity to make medical decision. Risks and benefits are explained for him extensively Labs and medication were reviewed.. Continue same treatment. Continue with symptomatic treatment. Resume home medication. Monitor labs and vitals. DVT and GI prophylaxis. Further recommendations as per clinical course of the patie nt DVT prophylaxis:no Subcutaneous heparin GI Prophylaxis: Ppi Prognosis is guarded
[2023-06-28 11:45] LABS: HCT 38.4 % (39.0-53.0); HGB 12.3 gm/dL (13.0-17.5); MCHC 32.1 g/dL (31.0-37.0); MCV 99.6 fL (80.0-100.0); Mean Platelet Volume 8.1; Platelet Count 302 k/uL (150-450); RBC 3.86 m/uL (4.30-5.90); RDW 13.4 % (11.5-15.5); WBC 8.6 k/uL (3.8-10.6)
[2023-06-28] MEDS: PANTOPRAZOLE 40 MG/10 ML VIAL IVP SCH (12:23)
[2023-06-28] MEDS: PIPERACILLIN-TAZOBACTAM 3.375 GM in SODIUM CHLORIDE 0.9% 100 ML IVPB STA (12:26)
[2023-06-28] MEDS: SODIUM CHLORIDE 0.9% 1,000 ML IV SCH (12:26)
[2023-06-28 13:17] LABS: Glucose,Whole Blood 99 mg/dL (70-110)
[2023-06-28 14:49] LABS: HCT 38.6 % (39.0-53.0); MCH 31.5 pg (25.0-35.0); MCHC 31.2 g/dL (31.0-37.0); MCV 101.1 fL (80.0-100.0); Mean Platelet Volume 7.6; Platelet Count 269 k/uL (150-450); RBC 3.82 m/uL (4.30-5.90); WBC 7.8 k/uL (3.8-10.6)
--- NOTE | 2023-06-28 16:25 | P.GSCN ---
History of Present Illness Consult date: 06/28/23 History of present illness: CHIEF COMPLAINT: Bright red blood per rectum HISTORY OF PRESENT ILLNESS: This is a 67-year-old male who presented to the hospital with complaints of bright red blood per rectum. Patient reports that he was having bloody bowel movements every hour. Initially they started out light and then became heavy with blood clots. While in the ER the bleeding is slowing down. He reports that the last bowel movement there was just a few drops of blood. He denies any abdominal pain. He did have a colonoscopy in 2018 that did show evidence of colon polyps and diverticulosis. He does have a history of constipation and hemorrhoids. Denies being on any blood thinners. He did have a CTA of the abdomen that did show evidence of bleeding in the sigmoid colon. Hemoglobin on admission 13.1. Surgical service consulted for GI bleed. PAST MEDICAL HISTORY: See list. PAST SURGICAL HISTORY: See list. MEDICATIONS: See list. ALLERGIES: See list. SOCIAL HISTORY: No illicit drug use. REVIEW OF SYSTEMS: CONSTITUTIONAL: Denies fever or chills. HEENT: Denies blurred vision, vision changes, or eye pain. Denies hemoptysis ENDOCRINE: Denies heat or cold intolerance. CARDIOVASCULAR: Denies chest pain or pressure. RESPIRATORY: No shortness of breath. GASTROINTESTINAL: Denies abdominal pain. Denies nausea or vomiting. NEURO: Denies history of seizures. PSYCH: No depression or suicidal ideation HEMATOLOGIC: Denies bleeding disorders. LYMPHATIC: The patient denies any lumps and bumps around the neck. GENITOURINARY: Denies any blood in urine or increased urinary frequency. MUSCULOSKELETAL: Denies myalgias. Denies joint swelling. Denies decreased range of motion beyond patients baseline. SKIN: Denies pruitis. Denies rash. PHYSICAL EXAM: VITAL SIGNS: Reviewed GENERAL: Well-developed in no acute distress. HEENT: No sclera icterus. Extraocular movements grossly intact. Moist buccal mucosa. Head is atraumatic, normocephalic. Hears conversational speech. No nasal drainage. NECK: Supple without lymphadenopathy. CHEST: Non-labored respirations and equal bilateral excursions. CARDIOVASCULAR: Palpable 2+ radial pulses. ABDOMEN: Soft. Nondistended. Nontender MUSCULOSKELETAL: No clubbing or cyanosis. NEUROLOGIC: No focal or lateralizing signs. Cranial nerves II through XII grossly intact. PSYCH: Appropriate affect. Alert and oriented to person, place and time. SKIN: Well perfused. Good skin turgor. LABORATORY DATA: WBC 7.8 Hgb 13.1 down to 12.0 platelets 269 IMAGING: CTA of the abdomen intraluminal contrast extravasation noted on early arterial phase imaging of the proximal sigmoid colon this is consistent with patient's source of reported GI bleed. ASSESSMENT: 1. Acute GI bleed likely a diverticular bleed 2. History of diverticulosis PLAN: -Start clear liquid diet -Start antibiotics for empiric treatment of diverticulitis -Start IV fluids -Continue to monitor hemoglobin -Patient will need colonoscopy -Hold the fish oil, vitamin D and vitamin C. This can increase risk of bleeding -Hold aspirin Physician Acid Patroller note has been reviewed by physician. Signing provider agrees with the documented findings, assessment, and plan of care. Past Medical History Past Medical History: Cancer, Hyperlipidemia, Hypertension Additional Past Medical History / Comment(s): HX PROSTATE CANCER, cellulitis left leg History of Any Multi-Drug Resistant Organisms: None Reported Past Surgical History: Appendectomy, Prostate Surgery, Tonsillectomy Additional Past Surgical History / Comment(s): PROSTATE REMOVED. COLONOSCOPY Past Anesthesia/Blood Transfusion Reactions: No Reported Reaction Past Psychological History: No Psychological Hx Reported Smoking Status: Former smoker Past Alcohol Use History: None Reported Additional Past Alcohol Use History / Comment(s): QUIT SMOKING 2013 Past Drug Use History: None Reported - Past Family History Mother Family Medical History: No Reported History Medications and Allergies Home Medications Medication Instructions Recorded Confirmed Type Ascorbic Acid [Vitamin C] 500 mg PO DAILY 04/06/20 06/28/23 History Aspirin EC [Ecotrin] 325 mg PO DAILY 06/28/23 06/28/23 History Cholecalciferol [Vitamin D3 (25 25 mcg PO DAILY 06/28/23 06/28/23 History Mcg = 1000 Iu)] [place]-3/Dha/Epa/Fish Oil [Fish Oil 1 cap PO DAILY 06/28/23 06/28/23 History 1,000 mg Softgel] lisinopriL [Prinivil] 10 mg PO DAILY 06/28/23 06/28/23 History Allergies Allergy/AdvReac Type Severity Reaction Status Date / Time No Known Allergies Allergy Verified 06/28/23 07:41 Surgical - Exam Vital Signs Temp Pulse Resp BP Pulse Ox 97.7 F 84 16 153/99 95 06/27/23 23:15 06/27/23 23:15 06/27/23 23:15 06/27/23 23:15 06/27/23 23:15 Results - Labs 06/28/23 14:09 06/27/23 23:40 Abnormal Lab Results - Last 24 Hours (Table) 06/27/23 06/27/23 Range/Units 23:40 23:40 RBC 4.00 L (4.30-5.90) m/uL BUN 35 H (9-20) mg/dL Diabetes panel 06/27/23 Range/Units 23:40 Sodium 141 (137-145) mmol/L Potassium 4.3 (3.5-5.1) mmol/L Chloride 107 (98-107) mmol/L Carbon Dioxide 26 (22-30) mmol/L BUN 35 H (9-20) mg/dL Creatinine 1.02 (0.66-1.25) mg/dL Glucose 99 (74-99) mg/dL Calcium 9.7 (8.4-10.2) mg/dL AST 32 (17-59) U/L ALT 25 (4-49) U/L Alkaline Phosphatase 82 (38-126) U/L Total Protein 7.7 (6.3-8.2) g/dL Albumin 4.3 (3.5-5.0) g/dL Calcium panel 06/27/23 Range/Units 23:40 Calcium 9.7 (8.4-10.2) mg/dL Albumin 4.3 (3.5-5.0) g/dL Pituitary panel 06/27/23 Range/Units 23:40 Sodium 141 (137-145) mmol/L Potassium 4.3 (3.5-5.1) mmol/L Chloride 107 (98-107) mmol/L Carbon Dioxide 26 (22-30) mmol/L BUN 35 H (9-20) mg/dL Creatinine 1.02 (0.66-1.25) mg/dL Glucose 99 (74-99) mg/dL Calcium 9.7 (8.4-10.2) mg/dL Adrenal panel 06/27/23 Range/Units 23:40 Sodium 141 (137-145) mmol/L Potassium 4.3 (3.5-5.1) mmol/L Chloride 107 (98-107) mmol/L Carbon Dioxide 26 (22-30) mmol/L BUN 35 H (9-20) mg/dL Creatinine 1.02 (0.66-1.25) mg/dL Glucose 99 (74-99) mg/dL Calcium 9.7 (8.4-10.2) mg/dL Total Bilirubin 0.3 (0.2-1.3) mg/dL AST 32 (17-59) U/L ALT 25 (4-49) U/L Alkaline Phosphatase 82 (38-126) U/L Total Protein 7.7 (6.3-8.2) g/dL Albumin 4.3 (3.5-5.0) g/dL
[2023-06-28] MEDS: PIPERACILLIN-TAZOBACTAM 3.375 GM in SODIUM CHLORIDE 0.9% 100 ML IVPB SCH (17:36)
[2023-06-28] MEDS: ACETAMINOPHEN TAB 325 MG TAB PO PRN (18:01)
[2023-06-28] MEDS: MELATONIN 5 MG TABLET PO SCH (21:49)
[2023-06-29] MEDS: lisinopriL 10 MG TAB PO SCH (09:03)
--- NOTE | 2023-06-29 10:44 | P.PN ---
Subjective Covering for his PCP Dr. ZHENG This is a pleasant 67 years old male with multiple medical problems Presents because of blood in the stool Patient has states he has 4 episodes of blood in the stool, the first one was mild but the next 3 were heavier, it is painless, as patient denies abdominal pain or tenderness. No chest pain or dyspnea. No diarrhea. No dysuria or urgency. No other neurological symptoms Denies smoking alcohol He takes aspirin 325 mg daily but also he has arthritis especially of the right knee and he is been told he needs knee surgery He uses naproxen frequently but mostly last few days as he states, patient counseled to try to avoid Naprosyn as increased risk of bleeding. Also he uses Tylenol which he can continue. Patient also was upset because he still in the emergency room to waiting for a bed available, he says he will wait a few hours and he doesn't get the bed he will walk about. Patient counseled against leaving AMA, risks including but not limited to the risk of worsening bleeding, hypertension and/or are explained for him and he verbalized understanding and acceptance to stay for now but he still would consider to leave AMA later on. Based upon my evaluation patient has capacity to make decision. Patient is himself awake alert sitting in the chair comfortable with no distress and looks at baseline, he looks as symptomatic other than the blood in his stool. He is oriented to time place person, follow commands and has insight into his illness He is hemodynamically stable Hemoglobin 13.1, rest of CBC is unremarkable, INR 1.0, BMP and liver enzymes and troponin were unremarkable Abdominal computed tomography scan showing proximal sigmoid contrast suspicious for GI bleed 06/29/2023 Patient is awake alert. No abdominal pain or tenderness. No vomiting or diarrhea. Last bowel movement was yesterday with no blood. Hemoglobin was 12.1 yesterday, hemodynamically stable Aspirations 325 remains on hold. This is been taking this aspirin for many years prescribed by primary care doctor for her protection. He does not see leak patcher as an outpatient. The patient has been taking naproxen for his right knee pain for his osteoarthritis. Patient instructed to avoid NSAIDs including naproxen and he agrees. Continue with Tylenol and topical. Patient says his knee pain is controlled currently. Discussed the case with surgery team or recommend to treat him conservatively Continue with IV Protonix and gentle hydration. Aspirin remains on hold Review of systems CONSTITUTIONAL: No fever, no malaise, no fatigue. HEENT: No recent visual problems or hearing problems. Denied any sore throat. CARDIOVASCULAR: No orthopnea, PND, no palpitations, no syncope. PULMONARY: No shortness of breath, no cough, no hemoptysis. GASTROINTESTINAL: No diarrhea, no nausea, no vomiting, no abdominal pain. Normoactive bowel sounds. Active Medications Generic Name Dose Route Start Last Admin Trade Name Freq PRN Reason Stop Dose Admin Acetaminophen 650 mg 06/28/23 17:40 06/28/23 18:01 Acetaminophen Tab 325 Mg Tab PO 650 mg Q6HR PRN Administration Fever and/ or Pain Sodium Chloride 1,000 mls @ 75 mls/hr 06/28/23 11:00 06/29/23 00:50 Saline 0.9% IV Not Given .[id number] VANESSA Piperacillin Sod/Tazobactam 100 mls @ 25 mls/hr 06/28/23 16:00 06/29/23 09:04 Sod 3.375 gm/ Sodium Chloride IVPB 25 mls/hr Q8HR VANESSA Administration Protocol Lisinopril 10 mg 06/29/23 09:00 06/29/23 09:03 Lisinopril 10 Mg Tab PO 10 mg DAILY VANESSA Administration Melatonin 5 mg 06/28/23 21:30 06/28/23 21:49 Melatonin 5 Mg Tablet PO 5 mg HS VANESSA Administration Naloxone HCl 0.2 mg 06/28/23 04:10 Naloxone 0.4 Mg/Ml 1 Ml Vial IV Q2M PRN Opioid Reversal Pantoprazole Sodium 40 mg 06/28/23 10:00 06/29/23 09:04 Pantoprazole 40 Mg/10 Ml Vial IVP 40 mg DAILY VANESSA Administration Objective - Vital Signs Vital signs: Vital Signs Temp 98.1 F 06/29/23 07:07 Pulse 88 06/29/23 07:07 Resp 17 06/29/23 07:07 BP 119/74 06/29/23 07:07 Pulse Ox 99 06/29/23 07:07 FiO2 Intake & Output 06/28/23 06/29/23 06/29/23 18:59 06:59 18:59 Intake Total 125 Balance 125 Weight 139.253 kg 140.5 kg Intake: Intake, IV Titration 125 Amount Piperacillin-Tazobactam 3 50 .375 gm In Sodium Chloride 0.9% 100 ml @ 25 mls/hr IVPB Q8HR [facility] Rx# :[id number] Sodium Chloride 0.9% 1, 75 000 ml @ 75 mls/hr IV . [id number] [facility] Rx#:[id number] Other: # Voids 1 - Exam GENERAL: The patient is alert and oriented x3, not in any acute distress. Well developed, well nourished. HEENT: Pupils are round and equally reacting to light. EOMI. No scleral icterus. No conjunctival pallor. Normocephalic, atraumatic. No pharyngeal erythema. No thyromegaly. CARDIOVASCULAR: S1 and S2 present. No murmurs, rubs, or gallops. PULMONARY: Chest is clear to auscultation, no wheezing , no crackles. ABDOMEN: Soft, nontender, nondistended, normoactive bowel sounds. No palpable organomegaly. MUSCULOSKELETAL: No joint swelling or deformity. EXTREMITIES: No cyanosis, clubbing, or pedal edema. NEUROLOGICAL: Gross neurological examination did not reveal any focal deficits. SKIN: No rashes. no petechiae. - Labs CBC & Chem 7: 06/28/23 14:09 06/27/23 23:40 Labs: Abnormal Lab Results - Last 24 Hours (Table) 06/28/23 06/28/23 Range/Units 11:26 14:09 RBC 3.86 L 3.82 L (4.30-5.90) m/uL Hgb 12.3 L 12.0 L (13.0-17.5) gm/dL Hct 38.4 L 38.6 L (39.0-53.0) % MCV 101.1 H (80.0-100.0) fL Assessment and Plan Assessment: Blood in his stool suspicious for lower GI bleed, with contrast seen in the sig moid suspicious for diverticulosis with bleeding given the location. Hemoglobin and blood pressure is stable but needs close monitoring History of osteoarthritis especially of the right no which is more severe Obesity with BMI of 39.4 Hypertension Hyperlipidemia History of prostate cancer status post prostate removed Plan: Continue monitoring hemoglobin Surgery team consult Continue with normal saline at 75 mL/h Hold aspirin and blood thinners Continue with Protonix Patient counseled extensively against leaving AMA, however he has capacity to make medical decision. Risks and benefits are explained for him extensively Labs and medication were reviewed.. Continue same treatment. Continue with symptomatic treatment. Resume home medication. Monitor labs and vitals. DVT and GI prophylaxis. Further recommendations as per clinical course of the patient DVT prophylaxis:no Subcutaneous heparin GI Prophylaxis: Ppi Prognosis is guarded
[2023-06-29 11:00] LABS: Basophils # (A) 0.05 X 10*3/uL (0.00-0.10); Basophils % (A) 0.7 %; Eosinophils # (A) 0.13 X 10*3/uL (0.04-0.35); Eosinophils % (A) 1.8 %; HCT 31.4 % (39.6-50.0); HGB 10.3 g/dL (13.0-17.0); Lymphocytes % (A) 39.3 %; MCH 32.9 pg (27.0-32.0); MCHC 32.8 g/dL (32.0-37.0); MCV 100.3 FL (80.0-97.0); Mean Platelet Volume 10.2 FL (9.5-12.2); Monocytes # (A) 0.83 X 10*3/uL (0.20-1.00); Monocytes % (A) 11.3 %; NRBC Per 100 WBC 0 X 10*3/uL (0.00-0.01); Neutrophils # (A) 3.37 X 10*3/uL (1.80-7.70); Neutrophils % (A) 45.7 %; Platelet Count 262 X 10*3/uL (140-440); RBC 3.13 X 10*6/uL (4.40-5.60); RDW 13.6 % (11.5-14.5); WBC 7.37 X 10*3/uL (4.50-10.00)
[2023-06-29 11:21] LABS: BUN/Creat Ratio 25.22 Ratio (12.00-20.00); Blood Urea Nitrogen 22.7 mg/dL (9.0-27.0); Calcium 8.8 mg/dL (8.7-10.3); Carbon Dioxide 24.2 mmol/L (21.6-31.8); Chloride 109 mmol/L (96-109); Glucose 108 mg/dL (70-110); Potassium 4.3 mmol/L (3.5-5.5); Sodium 142 mmol/L (135-145)
[2023-06-29 11:46] LABS: Glucose,Whole Blood 98 mg/dL (70-110)
--- NOTE | 2023-06-29 14:27 | P.PN ---
Subjective Progress Note Date: 06/29/23 CHIEF COMPLAINT: Diverticular bleed HISTORY OF PRESENT ILLNESS: Patient has had no further bleeding since 10:00 last night. He denies any abdominal pain. Denies any nausea or vomiting. Afebrile. Mild tachycardia resolved. Hemoglobin did drop from 12-10.3 PHYSICAL EXAM: VITAL SIGNS: Reviewed GENERAL: Well-developed in no acute distress. HEENT: No sclera icterus. Extraocular movements grossly intact. Moist buccal mucosa. Head is atraumatic, normocephalic. Hears conversational speech. No nasal drainage. NECK: Supple without lymphadenopathy. CHEST: Non-labored respirations and equal bilateral excursions. CARDIOVASCULAR: Palpable 2+ radial pulses. ABDOMEN: Soft. Nondistended. Nontender. MUSCULOSKELETAL: No clubbing or cyanosis. NEUROLOGIC: No focal or lateralizing signs. Cranial nerves II through XII grossly intact. PSYCH: Appropriate affect. Alert and oriented to person, place and time. SKIN: Well perfused. Good skin turgor. ASSESSMENT: 1. Acute GI bleed likely a diverticular bleed 2. History of diverticulosis PLAN: -Continue full liquid diet -Continue to monitor hemoglobin -Continue to monitor for any signs or symptoms of bleeding -Do not advance diet -Continue antibiotics for empiric treatment of diverticulitis -No plans for colonoscopy during this admission at this time. Recommend colonoscopy outpatient -Hold the fish oil, vitamin D and vitamin C. This can increase risk of bleeding -Hold aspirin Physician Trust Evaluation Supervisor note has been reviewed by physician. Signing provider agrees with the documented findings, assessment, and plan of care. Objective - Vital Signs Vital signs: Vital Signs Temp 98.1 F 06/29/23 07:07 Pulse 88 06/29/23 07:07 Resp 17 06/29/23 07:07 BP 119/74 06/29/23 07:07 Pulse Ox 99 06/29/23 07:07 FiO2 Intake & Output 06/28/23 06/29/23 06/29/23 18:59 06:59 18:59 Intake Total 125 Balance 125 Weight 139.253 kg 140.5 kg Intake: Intake, IV Titration 125 Amount Piperacillin-Tazobactam 3 50 .375 gm In Sodium Chloride 0.9% 100 ml @ 25 mls/hr IVPB Q8HR [facility] Rx# :[id number] Sodium Chloride 0.9% 1, 75 000 ml @ 75 mls/hr IV . [id number] [facility] Rx#:[id number] Other: # Voids 1 - Labs CBC & Chem 7: 06/29/23 06:33 06/29/23 06:33 Labs: Abnormal Lab Results - Last 24 Hours (Table) 06/28/23 06/28/23 06/29/23 Range/Units 11:26 14:09 06:33 RBC 3.86 L 3.82 L 3.13 L (4.30-5.90) m/uL Hgb 12.3 L 12.0 L 10.3 L (13.0-17.5) gm/dL Hct 38.4 L 38.6 L 31.4 L (39.0-53.0) % MCV 101.1 H 100.3 H (80.0-100.0) fL MCH 32.9 H (27.0-32.0) pg Immature Gran # 0.09 H (0.00-0.04) X 10*3/uL BUN/Creatinine Ratio (12.00-20.00) Ratio 06/29/23 Range/Units 06:33 RBC (4.30-5.90) m/uL Hgb (13.0-17.5) gm/dL Hct (39.0-53.0) % MCV (80.0-100.0) fL MCH (27.0-32.0) pg Immature Gran # (0.00-0.04) X 10*3/uL BUN/Creatinine Ratio 25.22 H (12.00-20.00) Ratio
[2023-06-29 17:08] LABS: Glucose,Whole Blood 96 mg/dL (70-110)
[2023-06-29 20:15] LABS: Glucose,Whole Blood 94 mg/dL (70-110)
[2023-06-30 05:59] LABS: Glucose,Whole Blood 106 mg/dL (70-110)
[2023-06-30 08:23] VITALS: RESP 16
[2023-06-30 08:32] LABS: Basophils % (A) 1 %; Eosinophils # (A) 0.2 k/uL (0-0.7); Eosinophils % (A) 3 %; HCT 31.9 % (39.0-53.0); HGB 10.2 gm/dL (13.0-17.5); Lymphocytes # (A) 2.5 k/uL (1.0-4.8); Lymphocytes % (A) 40 %; MCH 32.2 pg (25.0-35.0); MCHC 32.1 g/dL (31.0-37.0); MCV 100.6 fL (80.0-100.0); Mean Platelet Volume 8.1; Monocytes # (A) 0.5 k/uL (0-1.0); Monocytes % (A) 8 %; Neutrophils # (A) 2.9 k/uL (1.3-7.7); Neutrophils % (A) 46 %; Platelet Count 242 k/uL (150-450); RBC 3.17 m/uL (4.30-5.90); RDW 13.3 % (11.5-15.5); WBC 6.3 k/uL (3.8-10.6)
[2023-06-30 11:12] LABS: Glucose,Whole Blood 98 mg/dL (70-110)
[2023-06-30 14:22] VITALS: BP 118/74; PULSE 70; TEMP 97.9
--- NOTE | 2023-06-30 15:08 | P.PN ---
Progress Note - Text He had a BM without blood. Abdomen soft, Hgb and WBC normal. OK for discharge.
--- NOTE | 2023-06-30 18:41 | P.DS ---
Providers Date of admission: 06/28/23 04:11 Attending physician: Gerry Robles MD Consults: 06/28/23 04:10 Consult Physician Urgent Consulting Provider: Alison Brown Consult Reason/Comments: acute lower gi bleed, acute diverticulosis Do you want consulting provider notified?: Already Contacted Primary care physician: John Benavides MD Hospital Course: Diagnoses: Blood in his stool suspicious for lower GI bleed, with contrast seen in the sigmoid suspicious for diverticulosis with bleeding given the location. Hemoglobin and blood pressure is stable but needs close monitoring History of osteoarthritis especially of the right no which is more severe Obesity with BMI of 39.4 Hypertension Hyperlipidemia History of prostate cancer status post prostate removed Hospital course: This is a pleasant 67 years old male with multiple medical problems. Presents because of blood in the stool. Patient has states he has 4 episodes of blood in the stool, the first one was mild but the next 3 were heavier, it is painless, as patient denies abdominal pain or tenderness. Patient was complaining of from right knee pain and he was taking Naprosyn besides this chronically on aspirin 325 mg for many years but PCP for secondary prevention. Aspirin was held. Patient advised against risks more NSAIDs like Nepro seen and similar medication and he agrees. Patient advised use Tylenol and something topical and he says he has at that home. Abdominal computed tomography scan showing proximal sigmoid contrast suspicious for GI bleed Patient developed by Gen. surgery team and was treated conservatively with proton pump inhibitor Bleeding. And yesterday and today he has brown bowel movement with no blood. Hemoglobin is stable around 10. No other GI symptoms like no abdominal pain or vomiting and had tolerated diet well She today's wants to go home and he is eager to be discharged She denies any other new complaints Patient was cleared for discharge by surgery team and recommended to hold asp irin 1 week, patient informed and he agrees Problems and management plan were discussed with the patient and he verbalized understanding and acceptance Patient was found stable and can be discharged home in guarded prognosis however he needs follow-up as an outpatient. Patient was instructed to follow up with PCP Dr. Benavides within one week and patient agrees Patient was instructed to follow up with surgeon Dr. Espinoza in 7-10 days after discharge and he agrees Physical exam Gen: patient is a AAOx3, no distress CVS: S1-S2, RRR, no murmur Lungs: B/L CTA, no wheezing Abdomen: soft, no distention, no tenderness, positive bowel sounds Extremity: no leg edema or induration Time spent more than 35 minutes Patient Condition at Discharge: Stable Plan - Discharge Summary Discharge Rx Participant: No New Discharge Prescriptions: New Amoxic-Pot Clav 500-125 mg [Augmentin 500-125 mg] 1 tab PO Q12HR 7 Days #14 tab Pantoprazole [Protonix] 40 mg PO DAILY #30 tab Continue Ascorbic Acid [Vitamin C] 500 mg PO DAILY Cholecalciferol [Vitamin D3 (25 Mcg = 1000 Iu)] 25 mcg PO DAILY lisinopriL [Prinivil] 10 mg PO DAILY [place]-3/Dha/Epa/Fish Oil [Fish Oil 1,000 mg Softgel] 1 cap PO DAILY No Action Aspirin EC [Ecotrin] 325 mg PO DAILY Discharge Medication List Ascorbic Acid [Vitamin C] 500 mg PO DAILY 04/06/20 [History] Aspirin EC [Ecotrin] 325 mg PO DAILY 06/28/23 [History] Cholecalciferol [Vitamin D3 (25 Mcg = 1000 Iu)] 25 mcg PO DAILY 06/28/23 [History] [place]-3/Dha/Epa/Fish Oil [Fish Oil 1,000 mg Softgel] 1 cap PO DAILY 06/28/23 [History] lisinopriL [Prinivil] 10 mg PO DAILY 06/28/23 [History] Amoxic-Pot Clav 500-125 mg [Augmentin 500-125 mg] 1 tab PO Q12HR 7 Days #14 tab 06/30/23 [Rx] Pantoprazole [Protonix] 40 mg PO DAILY #30 tab 06/30/23 [Rx] Follow up Appointment(s)/Referral(s): John Benavides MD [Primary Care Provider] - 1-2 days Alison Brown MD [STAFF PHYSICIAN] - 1 Week Patient Instructions/Handouts: Gastrointestinal Bleeding (DC), Diverticulitis (DC) Activity/Diet/Wound Care/Special Instructions: heart healthy diet activity is restricted till you see your doctor we recommend to hold your home dose of aspirin for one week and then can be resumed with close monitoring with your doctor, monitor for signs and symptoms of bleeding like blood in stool or black stool please Discharge Disposition: HOME SELF-CARE
--- NOTE | 2023-07-06 08:38 | CDI ---
Documentation Clarification Form Date: 07/06/2023 08:12:09 AM From: Sania Vance RN, CCDS Email: [email or web address] Admit Date: 06/28/2023 04:11:00 AM Patient Name: Dontrell Kapoor Visit Number: [id number] Discharge Date: 06/30/2023 06:07:00 PM ATTENTION: The Clinical Documentation Specialists (CDI) and [facility] Coding Staff appreciate your assistance in clarifying documentation. Please respond to the clarification below the line at the bottom and electronically sign. The CDI & [facility] Coding staff will review the response and follow-up if needed. Please note: Queries are made part of the Legal Health Record. If you have any questions, please contact the author of this message via ITS. Dr. Garrett E Sheet Your patient had a GI bleed and drop in hemoglobin/hematocrit level during admission. Please clarify if there is an additional diagnosis and/or clinical significance related to these lab values. History/Risk Factors: Cancer, HLD and HTN. Presents with blood and clots in stool. He takes ASA and Naproxen frequently for arthritis. Admitted with lower GI bleed with contrast seen in the sigmoid suspicious for diverticulosis with bleeding given the location. Clinical indicators: 06/27 Hgb/Hct: 13.1/39.6 06/30 Hgb/Hct: 10.2/31.9 06/28 Surgery consult: "Acute GI bleed likely a diverticular bleed." 06/30 Discharge summary: Abdominal computed tomography scan showing proximal sigmoid contrast suspicious for GI bleed." Treatment: Monitor Hgb/Hct daily; hold fish oil, vitamin D and Vitamin C as this can increase risk of bleeding per 06/28 Surgical consult; hold ASA; 0.9 NS @75mL/hr 06/28-06/30; IV Protonix 40mg daily 06/28-06/30 Is there an additional diagnosis and/or clinical significance related to the above lab result/information: [ x ] Acute blood loss anemia. [possible] [ ] No additional diagnosis/Not clinically significant [ ] Unable to determine [ ] Other, please specify MTDD
== END 2023-06-30 18:07 | disposition home or self-care (01) | DRG 378 ==
LOC: EC 23:08 → 3SCARD 06-28 04:11 → 4SSUR 06-28 12:30
PROVIDERS: ADMIT Internal Medicine; ATTEND Internal Medicine
DX: K57.31 Diverticulosis of large intestine without perforation or abscess with bleeding (principal); D62 Acute posthemorrhagic anemia; I10 Essential (primary) hypertension; E78.5 Hyperlipidemia, unspecified; M17.11 Unilateral primary osteoarthritis, right knee; E66.01 Morbid (severe) obesity due to excess calories; Z68.39 Body mass index [BMI] 39.0-39.9, adult; Z79.82 Long term (current) use of aspirin; Z79.899 Other long term (current) drug therapy; Z85.46 Personal history of malignant neoplasm of prostate; Z87.19 Personal history of other diseases of the digestive system; Z87.891 Personal history of nicotine dependence
CPT/HCPCS: 36415; 74174; 80048; 80053; 83605; 83735; 84484; 85025; 85027; 85610; 85730; 96361; 96365; 96366; 96375; 99285

== ENCOUNTER → 2023-09-14 | Outpatient (CLI) | payer MEDICARE, BC ==
--- NOTE | 2023-09-20 20:08 | CTL ---
EXAMINATION TYPE: CT Low Dose Lung DATE OF EXAM: 09/14/2023 2:52 PM CLINICAL INDICATION:Male, 68 years old with history of Z12.2 LUNG CA SCR Z87.891 former smoker; perso nal tobacco use , history of tobacco use. COMPARISON: None. TECHNIQUE: Multiple axial non-contrast scans were obtained from approximately the lung apices through the upper abdomen. Coronal and sagittal reformatted images were obtained. Low dose technique was uti lized. CT DLP: 156.4 mGycm, Automated exposure control for dose reduction was used. CT Contrast: Contrast used: None Oral contrast used: None FINDINGS: ======== Lack of intravenous contrast and low dose technique limits the evaluation of the vascular and soft ti ssue structures. LUNGS: No evidence of pulmonary fibrosis. No evidence of focal consolidation, pneumothorax or pleural effusion. Nodules: RUL: None. RML: None. RLL: 8 mm.Solid calcified granuloma is seen in the right lower lobe on series 11, image 22. MARCO: None. LLL: None. AIRWAY: Patent and unremarkable. HEART: Size within normal limits. MEDIASTINUM: No gross evidence of adenopathy. Calcified hilar lymph nodes indicating healed granulo matous disease. VASCULATURE: No aortic aneurysm. MUSCULOSKELETAL: No acute osseous abnormalities SOFT TISSUES/LYMPH NODES: Unremarkable. LOWER NECK: No significant findings. UPPER ABDOMEN: No significant findings. IMPRESSION: 1. No clinically significant pulmonary nodules. CT LUNG RAD AND CT CHEST RECOMMENDATION: 1. Routine annual low-dose CT lung screening S Modifier (other clinically significant findings): None. Recommend smoking cessation (if current smoker), or continuation of smoking cessation (if prior smoke r). Annual screening for lung cancer with low-dose computed tomography is recommended in adults ages 55 to 77 years who have a 30 pack-year smoking history and currently smoke or have quit within the pa st 15 years. Screening should be discontinued once a person has not smoked for 15 years or develops a health problem that substantially limits life expectancy or the ability or willingness to have curat hanna lung surgery. Lung rads 2021 [email or web address]
== END | disposition home or self-care (01) ==
LOC: RADCTMAIN 13:56
PROVIDERS: ATTEND Family Medicine
DX: Z12.2 Encounter for screening for malignant neoplasm of respiratory organs (principal); Z87.891 Personal history of nicotine dependence
CPT/HCPCS: 71271